=== PATIENT | male | born 1960 | race Caucasian/White ===

== ENCOUNTER 2019-01-28 07:58 | Day surgery (SDC) | payer BC, OTHER ==
[2019-01-28] VITALS (8 sets, daily range): BP systolic 112–151; BP diastolic 52–87
[~2019-01-28] VITALS: Ht 165.1 cm; Wt 81.6 kg
[2019-01-28] MEDS ORDERED: fentaNYL INJECTION 100 MCG/2 ML AMP IVP STA ×3 (08:28→14:15)
[2019-01-28] MEDS ORDERED: NS IV 1000 ML 1,000 ML IV STA (08:28)
[2019-01-28] MEDS ORDERED: ONDANSETRON 4 MG/2 ML (SDV) Z0FRAN IVP ONE ×2 (08:30→11:45)
--- NOTE | 2019-01-28 08:39 | ED Abdominal Pain ---
General Chief Complaint: Abdominal/GI Problems Stated Complaint: N/V;ABD PAIN Nursing Triage Note: PT AMB TO [facility] 10 WITH COMPLAINT OF ABD PAIN, N/V/D FOR THE LAST FEW DAYS. STATES IT IS A CONSTANT CRAMPING PAIN IN THE UMBILICAL AREA THAT RADIATES TO RLQ AND LLQ. Sepsis Screen: No Definite Risk (KIRSTIE THOMAS MEDICAL STUDENT) History of Present Illness Date Seen by Provider: Jan 28, 2019 Time Seen by Provider: 08:26 Initial Comments Pt presents this morning to the ED from [place] c/o nausea, vomiting, diarrhea, and abdominal pain since Thursday. Pt describes the pain as crampy, periumbilical, and coming in waves. He endorses chills since Thursday as well. Burping initially helped relieve some of the pain, but no longer is helping. No relief in pain from bowel movements. Pt has been taking Emetrol for nausea and has tried Pepto Bismol without relief. Denies chest pain, SOB, or urinary urgency. Pt prefers to use the pronouns he, him, his but does still have female internal organs. Timing/Duration: 5-6 Days Severity/Quality: Severe, Cramping Location: Periumbilical Radiation: No Radiation Activities at Onset: None Modifying Factors: Improves With Other (burping) Associated Symptoms: No Chest Pain; Fever/Chills; No Heartburn; Nausea/Vomiting; No Shortness of Air (KIRSTIE THOMAS MEDICAL STUDENT) Allergies and Home Medications Allergies Coded Allergies: Penicillins (Verified Allergy, Unknown, 01/28/19) codeine (Verified Allergy, Unknown, 01/28/19) Home Medications Hydrocodone Bit/Acetaminophen 1 Tab Tab, 1 TAB PO Q6H PRN for PAIN-MODERATE Prescribed by: ENOCH KHAN on 01/28/19 7406 Patient Home Medication List Home Medication List Reviewed: Yes (KIRSTIE THOMAS MEDICAL STUDENT) Review of Systems Review of Systems Constitutional: chills EENTM: No Symptoms Reported Respiratory: Denies Shortness of Air Cardiovascular: Denies Chest Pain Gastrointestinal: Abdominal Pain (periumbilical); Denies Blood Streaked Stools; Diarrhea, Nausea, Vomiting Genitourinary: Denies Urgency Musculoskeletal: no symptoms reported Skin: no symptoms reported Psychiatric/Neurological: No Symptoms Reported Endocrine: No Symptoms Reported Hematologic/Lymphatic: No Symptoms Reported (KIRSTIE THOMAS MEDICAL STUDENT) Past Tyyetnd-Mnzpkm-Vvzwcp Hx Patient Social History Alcohol Use: Denies Use Recreational Drug Use: No Smoking Status: Former Smoker (quit 10 years ago) Recent Foreign Travel: No Contact w/Someone Who Travel: No Recent Infectious Disease Expo: No Recent Hopitalizations: No (KIRSTIE THOMAS MEDICAL STUDENT) Immunizations Up To Date Tetanus Booster (TDap): Unknown (KIRSTIE THOMAS MEDICAL STUDENT) Seasonal Allergies Seasonal Allergies: No (KIRSTIE THOMAS MEDICAL STUDENT) Past Medical History Surgeries: Yes (CARPAL TUNNEL, HAND) Orthopedic (bilateral hand surgery) Respiratory: No Cardiac: Yes Hypertension Neurological: No Genitourinary: No Gastrointestinal: No Musculoskeletal: Yes Rheumatoid Arthritis Endocrine: No HEENT: No Cancer: No Psychosocial: No Integumentary: No (KIRSTIE THOMAS MEDICAL STUDENT) Physical Exam Vital Signs Vital Signs - First Documented 01/28/19 08:02 Temp 97.7 Pulse 89 Resp 20 B/P (MAP) 119/93 (102) Pulse Ox 98 O2 Delivery Room Air (JACQUELINE HOUGH MD) Vital Signs Capillary Refill : Less Than 3 Seconds (KIRSTIE THOMAS MEDICAL STUDENT) Height/Weight/BMI Height: 5'5.00" Weight: 180lbs. oz. 81.114441wa; BMI Method:Stated General Appearance: WD/WN, mild distress HEENT: PERRL/EOMI, pharynx normal Neck: non-tender, full range of motion Respiratory: chest non-tender, lungs clear, plerual rub (bilateral inferior lobes) Cardiovascular: normal peripheral pulses, regular rate, rhythm, no murmur Peripheral Pulses: 2+ Radial Pulses (R), 2+ Radial Pulses (L) Gastrointestinal: normal bowel sounds, non tender, soft, other (rigidity) Extremities: non-tender, no pedal edema Back: normal inspection, no vertebral tenderness Neurologic/Psychiatric: alert, oriented x 3 Skin: ecchymosis (scattered bilateral arms) (KIRSTIE THOMAS MEDICAL STUDENT) Progress/Results/Core Measures Results/Orders Lab Results Laboratory Tests Test 01/28/19 08:10 01/28/19 10:14 Range/Units White Blood Count 6.3 4.3-11.0 10^3/uL Red Blood Count 4.48 4.35-5.85 10^6/uL Hemoglobin 12.7 L 13.3-17.7 G/DL Hematocrit 39 L 40-54 % Mean Corpuscular Volume 87 80-99 FL Mean Corpuscular Hemoglobin 28 25-34 PG Mean Corpuscular Hemoglobin Concent 33 32-36 G/DL Red Cell Distribution Width 14.9 H 10.0-14.5 % Platelet Count 286 130-400 10^3/uL Mean Platelet Volume 10.6 H 7.4-10.4 FL Neutrophils (%) (Auto) 76 H 42-75 % Lymphocytes (%) (Auto) 15 12-44 % Monocytes (%) (Auto) 7 0-12 % Eosinophils (%) (Auto) 2 0-10 % Basophils (%) (Auto) 0 0-10 % Neutrophils # (Auto) 4.7 1.8-7.8 X 10^3 Lymphocytes # (Auto) 0.9 L 1.0-4.0 X 10^3 Monocytes # (Auto) 0.5 0.0-1.0 X 10^3 Eosinophils # (Auto) 0.1 0.0-0.3 10^3/uL Basophils # (Auto) 0.0 0.0-0.1 10^3/uL Sodium Level 137 135-145 MMOL/L Potassium Level 3.6 3.6-5.0 MMOL/L Chloride Level 105 98-107 MMOL/L Carbon Dioxide Level 23 21-32 MMOL/L Anion Gap 9 5-14 MMOL/L Blood Urea Nitrogen 9 7-18 MG/DL Creatinine 0.78 0.60-1.30 MG/DL Estimat Glomerular Filtration Rate > 60 BUN/Creatinine Ratio 12 Glucose Level 121 H 70-105 MG/DL Calcium Level 9.4 8.5-10.1 MG/DL Corrected Calcium 9.6 8.5-10.1 MG/DL Total Bilirubin 0.4 0.1-1.0 MG/DL Aspartate Amino Transf (AST/SGOT) 16 5-34 U/L Alanine Aminotransferase (ALT/SGPT) 15 0-55 U/L Alkaline Phosphatase 94 40-136 U/L C-Reactive Protein High Sensitivity 2.00 H 0.00-0.50 MG/DL Total Protein 6.7 6.4-8.2 GM/DL Albumin 3.8 3.2-4.5 GM/DL Lipase 36 8-78 U/L Urine Color YELLOW Urine Clarity CLEAR Urine pH 5 5-9 Urine Specific [place] 1.020 1.016-1.022 Urine Protein NEGATIVE NEGATIVE Urine Glucose (UA) NEGATIVE NEGATIVE Urine Ketones NEGATIVE NEGATIVE Urine Nitrite NEGATIVE NEGATIVE Urine Bilirubin NEGATIVE NEGATIVE Urine Urobilinogen NORMAL NORMAL MG/DL Urine Leukocyte Esterase 2+ H NEGATIVE Urine RBC (Auto) 1+ H NEGATIVE Urine RBC RARE /HPF Urine WBC 5-10 H /HPF Urine Squamous Epithelial Cells 5-10 /HPF Urine Crystals NONE /LPF Urine Bacteria MODERATE H /HPF Urine Casts NONE /LPF Urine Mucus MODERATE H /LPF Urine Culture Indicated YES (JACQUELINE HOUGH MD) My Orders Orders - JACQUELINE HOUGH MD Cbc With Automated Diff (01/28/19 08:28) Comprehensive Metabolic Panel (01/28/19 08:28) Hs C Reactive Protein (01/28/19 08:28) Ua Culture If Indicated (01/28/19 08:28) Ondansetron Injection (Zofran Injectio (01/28/19 08:30) Ns Iv 1000 Ml (Sodium Chloride 0.9%) (01/28/19 08:28) Ed Iv/Invasive Line Start (01/28/19 08:28) Fentanyl Injection (Sublimaze Injection (01/28/19 08:28) Lipase (01/28/19 08:28) Chest Pa/Lat (2 View) (01/28/19 09:20) Ct Abdomen/Pelvis W (01/28/19 10:24) Iohexol Injection (Omnipaque 350 Mg/Ml 1 (01/28/19 10:30) Received Contrast (Hold Metformin- Contr (01/28/19 10:30) Sodium Chloride Flush (Catheter Flush Sy (01/28/19 10:30) Ns (Ivpb) (Sodium Chloride 0.9% Ivpb Bag (01/28/19 10:30) Urine Culture (01/28/19 10:14) Ondansetron Injection (Zofran Injectio (01/28/19 11:45) Fentanyl Injection (Sublimaze Injection (01/28/19 11:34) Us Pelvic (Non Ob)43566 (01/28/19 12:52) Ns Iv 1000 Ml (Sodium Chloride 0.9%) (01/28/19 14:15) Fentanyl Injection (Sublimaze Injection (01/28/19 14:15) Bupivacaine 0.5% W/Epi Inj (Sensorcaine (01/28/19 15:22) Propofol Injection (Diprivan Injection) (01/28/19 15:31) Dexamethasone Injection (Decadron Inject (01/28/19 15:31) Ondansetron Injection (Zofran Injectio (01/28/19 15:31) Lidocaine 2% Pf 5 Ml (Xylocaine 2% Pf) (01/28/19 15:31) Sevoflurane (15 Min) Inhal Jaqueline (Ultane ( (01/28/19 15:31) Fentanyl Injection (Sublimaze Injection (01/28/19 15:31) Midazolam Injection (Versed Injection) (01/28/19 15:31) Rocuronium 5 Ml Syringe (Rocuronium 5 Ml (01/28/19 15:35) (JACQUELINE HOUGH MD) Medications Given in ED (JACQUELINE HOUGH MD) Vital Signs/I&O 01/28/19 08:02 Temp 97.7 Pulse 89 Resp 20 B/P (MAP) 119/93 (102) Pulse Ox 98 O2 Delivery Room Air 01/29/19 00:00 Intake Total 1000 ml Balance 1000 ml (JACQUELINE HOUGH MD) Blood Pressure Mean: 102 Progress Progress Note : Progress Note I have seen and evaluated the patient and agree with above except as indicated. Have directed the plan of care. Patient is here with midepigastric pain over the last 4 days. Much worse today. Is associated with nausea and vomiting. I had anything like this before. He is tender mid abdomen and does appear to have some guarding. Plan is for IV, labs, UA, normal saline 1 L bolus, Zofran 4 mg IV and fentanyl 50 g IV ordered. Anticipate CT scan of the abdomen and pelvis. 1030: CT abdomen pelvis ordered. Monitor patient. 1035: Pain returned. Repeat fentanyl [address] 1435: CT complete and concerning for right adnexal cyst. Patient identifies as male but does have female genitalia. This was discussed with the patient. He understands that we will need to evaluate the adnexa via ul trasound due to concerns for cystic structure versus mass. We will try transabdominal ultrasound and this was ordered. Repeat fentanyl 50 g IV ordered for pain. I have discussed the case with Dr. Khan because patient is requiring additional dosing of pain medicines and has findings of gallstones. I do believe this is the cause of the pain. We will still attempt to get the ultrasound if able although this was delayed earlier due to decompressed bladder. Dr. Khan will see the patient in the emergency department. 1500: Patient has been seen by Dr. Khan and he will take him to surgery. Ultrasound pending. 1545: Patient to ultrasound which was done. Surgery department here to take patient to OR. Pain is tolerable currently. Did receive a second liter of fluid in an effort to try to expand the bladder which seems to have helped. To OR. (JACQUELINE HOUGH MD) Diagnostic Imaging Diagonstic Imaging: Xray, CT Plain Films/CT/US/NM/MRI: chest, abdomen Comments NAME: QUAN MCLEOD [facility] REC#: [id number] PT STATUS: REG ER : 1960 PHYSICIAN: JACQUELINE HOUGH MD ADMIT DATE: 01/28/19/ER Draft Date of Exam:01/28/19 CT ABDOMEN/PELVIS W PROCEDURE: CT abdomen and pelvis with contrast. TECHNIQUE: Multiple contiguous axial images were obtained through the abdomen and pelvis after administration of intravenous contrast. Auto Exposure Controls were utilized during the CT exam to meet ALARA standards for radiation dose reduction. DATE: January 28, 2019. COMPARISON: None. INDICATION: 58-year-old male, abdominal pain, nausea, vomiting, diarrhea. Symptoms for 4 days. FINDINGS: There is mild atelectasis and/or scarring in the left lower lobe. The additional visualized portions of the lung bases are clear. The heart is not enlarged. There is no identified pericardial effusion. The liver is unremarkable in size and contour. There is no identified liver lesion. The main, right, and left portal veins are patent. There are gallstones. The gallbladder is mildly distended. There is no pericholecystic fluid or inflammatory stranding immediately adjacent to the gallbladder to specifically suggest acute cholecystitis. There is no intrahepatic or extrahepatic bile duct dilation. There is an accessory splenule on axial image 17. The spleen is normal in size. There is a right adrenal nodule on axial image 18 measuring 1.4 cm in size which is indeterminate. There are subcentimeter low-attenuation right renal lesions which are too small to characterize. Urinary collecting systems are not distended. There is no identified renal or ureteral stone. The urinary bladder is grossly unremarkable in appearance. There is a low-attenuation right adnexal mass on axial image 65 which measures 5.0 x 2.9 cm in size. This is not specific. There is mild diverticulosis without evidence of acute diverticulitis. The appendix is seen on axial image 59 and adjacent sequential images. There is no evidence of acute appendicitis. There is no free intraperitoneal air. There is no drainable fluid collection. There is no free pelvic fluid. The intestinal tract is not distended. There are atherosclerotic calcifications. There is no identified abnormally enlarged lymph node in the abdomen or pelvis which meets CT size criteria for adenopathy. There are limitations of musculoskeletal assessment given lack of coronal and sagittal reformats. There are degenerative changes of the spine. IMPRESSION: CT ABDOMEN AND PELVIS. 1. Cholelithiasis without evidence of acute cholecystitis. 2. No identified acute abnormality within the abdomen or pelvis. 3. Low-attenuation right adnexal mass measuring 5.0 x 2.9 cm in size which is nonspecific. Further evaluation with pelvic ultrasound may be helpful. 4. Indeterminate right adrenal nodule measuring 1.4 cm in size. Dictated on workstation # [id number] Dict: 01/28/19 1205 Trans: 01/28/19 1234 [facility] [id number] Interpreted by: BETH ACOSTA MD Electronically signed by: (KIRSTIE THOMAS MEDICAL STUDENT) Diagonstic Imaging: Xray Plain Films/CT/US/NM/MRI: chest Comments [facility] [place] NAME: QUAN MCLEOD [facility] REC#: [id number] PT STATUS: REG ER : 1960 PHYSICIAN: JACQUELINE HOUGH MD ADMIT DATE: 01/28/19/ER Draft Date of Exam:01/28/19 CHEST PA/LAT (2 VIEW) INDICATION: Basilar crackles, pain. FINDINGS: The lungs are clear. The heart size and vascularity are normal. There is no failure, effusion, or pneumothorax. No free air beneath the diaphragm. The cardiomediastinal and hilar contours are normal. IMPRESSION: Normal two-view chest. Dictated on workstation # [id number] Dict: 01/28/1950 Trans: 01/28/19 0956 [id number] Interpreted by: GLENN PERALES Electronically signed by: (JACQUELINE HOUGH MD) Departure Communication (Admissions) Time/Spoke to Admitting Phy: 15:00 (JACQUELINE HOUGH MD) Impression Primary Impression: Gallstones Additional Impression: Right ovarian cyst Disposition: ADMITTED INPATIENT Condition: Stable Admissions Decision to Admit Reason: Admit from ER (General) Decision to Admit/Date: Jan 28, 2019 Time/Decision to Admit Time: 15:00 (JACQUELINE HOUGH MD) Departure-Patient Inst. Referrals: CORKY BARR MD (PCP) Primary Care Physician Scripts Hydrocodone Bit/Acetaminophen (Hydrocodone/Acetaminophen 5/325mg Tablet) 1 Tab T ab 1 TAB PO Q6H PRN for PAIN-MODERATE MDD 10, #20 TAB Prov: ENOCH KHAN DO 01/28/19 KIRSTIE THOMAS MEDICAL STUDENT Jan 28, 2019 08:39 JACQUELINE HOUGH MD Jan 28, 2019 10:05
[2019-01-28 09:19] LABS: BASOPHILS % (AUTO) 0 % (0-10); EOSINOPHILS # (AUTO) 0.1 10^3/uL (0.0-0.3); EOSINOPHILS % (AUTO) 2 % (0-10); HEMATOCRIT 39 % (40-54); HEMOGLOBIN 12.7 G/DL (13.3-17.7); LYMPHOCYTES # (AUTO) 0.9 X 10^3 (1.0-4.0); LYMPHOCYTES % (AUTO) 15 % (12-44); MEAN CORPUSCULAR HEMOGLOBIN 28 PG (25-34); MEAN CORPUSCULAR HGB CONC 33 G/DL (32-36); MEAN CORPUSCULAR VOLUME 87 FL (80-99); MEAN PLATELET VOLUME 10.6 FL (7.4-10.4); MONOCYTES # (AUTO) 0.5 X 10^3 (0.0-1.0); MONOCYTES % (AUTO) 7 % (0-12); NEUTROPHILS # (AUTO) 4.7 X 10^3 (1.8-7.8); NEUTROPHILS % (AUTO) 76 % (42-75); PLATELET COUNT 286 10^3/uL (130-400); RED CELL DISTRIBUTION WIDTH 14.9 % (10.0-14.5); WHITE BLOOD COUNT 6.3 10^3/uL (4.3-11.0)
[2019-01-28 09:31] LABS: ALANINE AMINOTRANSFERASE 15 U/L (0-55); ALBUMIN 3.8 GM/DL (3.2-4.5); ALKALINE PHOSPHATASE 94 U/L (40-136); BILIRUBIN,TOTAL 0.4 MG/DL (0.1-1.0); BUN/CREATININE RATIO 12; CALCIUM 9.4 MG/DL (8.5-10.1); CARBON DIOXIDE 23 MMOL/L (21-32); CHLORIDE 105 MMOL/L (98-107); CREATININE SERUM 0.78 MG/DL (0.60-1.30); GFR ESTIMATED > 60; GLUCOSE 121 MG/DL (70-105); LIPASE 36 U/L (8-78); POTASSIUM 3.6 MMOL/L (3.6-5.0); SODIUM 137 MMOL/L (135-145); TOTAL PROTEIN 6.7 GM/DL (6.4-8.2)
--- NOTE | 2019-01-28 09:56 | Diagnostic Imaging Report ---
INDICATION: Basilar crackles, pain. FINDINGS: The lungs are clear. The heart size and vascularity are normal. There is no failure, effusion, or pneumothorax. No free air beneath the diaphragm. The cardiomediastinal and hilar contours are normal. IMPRESSION: Normal two-view chest. Dictated by: Dictated on workstation # [id number]
[2019-01-28 10:21] LABS: BILIRUBIN,URINE NEGATIVE (NEGATIVE); CLARITY,URINE CLEAR; COLOR,URINE YELLOW; GLUCOSE, URINE (UA) NEGATIVE (NEGATIVE); KETONES,URINE NEGATIVE (NEGATIVE); LEUKOCYTE ESTERASE ,URINE 2+ (NEGATIVE); NITRITE,URINE NEGATIVE (NEGATIVE); PH,URINE 5 (5-9); PROTEIN,URINE NEGATIVE (NEGATIVE); UROBILINOGEN,URINE NORMAL (NORMAL)
[2019-01-28] MEDS ORDERED: IOHEXOL 350 MG/ML 100 ML (OMNIPAQUE 350) VIAL IV ONE (10:30)
[2019-01-28] MEDS ORDERED: NS 100 ML (IVPB) BAG IV ONE (10:30)
[2019-01-28] MEDS ORDERED: CATHETER FLUSH 10 ML SYR IV PRN (10:30)
[2019-01-28] MEDS ORDERED: HOLD METFORMIN - RECEIVED CONTRAST 20 ML VIAL IV SCH (10:30)
[2019-01-28 10:32] LABS: BACTERIA,URINE MODERATE /HPF; RBC,URINE RARE /HPF
--- NOTE | 2019-01-28 12:34 | Diagnostic Imaging Report ---
PROCEDURE: CT abdomen and pelvis with contrast. TECHNIQUE: Multiple contiguous axial images were obtained through the abdomen and pelvis after administration of intravenous contrast. Auto Exposure Controls were utilized during the CT exam to meet ALARA standards for radiation dose reduction. DATE: January 28, 2019. COMPARISON: None. INDICATION: 58-year-old male, abdominal pain, nausea, vomiting, diarrhea. Symptoms for 4 days. FINDINGS: There is mild atelectasis and/or scarring in the left lower lobe. The additional visualized portions of the lung bases are clear. The heart is not enlarged. There is no identified pericardial effusion. The liver is unremarkable in size and contour. There is no identified liver lesion. The main, right, and left portal veins are patent. There are gallstones. The gallbladder is mildly distended. There is no pericholecystic fluid or inflammatory stranding immediately adjacent to the gallbladder to specifically suggest acute cholecystitis. There is no intrahepatic or extrahepatic bile duct dilation. There is an accessory splenule on axial image 17. The spleen is normal in size. There is a right adrenal nodule on axial image 18 measuring 1.4 cm in size which is indeterminate. There are subcentimeter low-attenuation right renal lesions which are too small to characterize. Urinary collecting systems are not distended. There is no identified renal or ureteral stone. The urinary bladder is grossly unremarkable in appearance. There is a low-attenuation right adnexal mass on axial image 65 which measures 5.0 x 2.9 cm in size. This is not specific. There is mild diverticulosis without evidence of acute diverticulitis. The appendix is seen on axial image 59 and adjacent sequential images. There is no evidence of acute appendicitis. There is no free intraperitoneal air. There is no drainable fluid collection. There is no free pelvic fluid. The intestinal tract is not distended. There are atherosclerotic calcifications. There is no identified abnormally enlarged lymph node in the abdomen or pelvis which meets CT size criteria for adenopathy. There are limitations of musculoskeletal assessment given lack of coronal and sagittal reformats. There are degenerative changes of the spine. IMPRESSION: CT ABDOMEN AND PELVIS. 1. Cholelithiasis without evidence of acute cholecystitis. 2. No identified acute abnormality within the abdomen or pelvis. 3. Low-attenuation right adnexal mass measuring 5.0 x 2.9 cm in size which is nonspecific. Further evaluation with pelvic ultrasound may be helpful. 4. Indeterminate right adrenal nodule measuring 1.4 cm in size. Dictated by: Dictated on workstation # [id number]
[2019-01-28] MEDS ORDERED: NS IV 1000 ML 1,000 ML IV ONE (14:15)
--- NOTE | 2019-01-28 15:19 | Consultation (Surgery) ---
History of Present Illness History of Present Illness Patient Consulted On(honey/time) 01/28/19 15:11 Time Seen by Provider: 14:37 History of Present Illness Surgery asked to consult regarding umbilical and RUQ pain. HPI per ED: Pt presents this morning to the ED from [place] c/o nausea, vomiting, diarrhea, and abdominal pain since Thursday. Pt describes the pain as crampy, periumbilical, and coming in waves. He endorses chills since Thursday as well. Burping initially helped relieve some of the pain, but no longer is helping. No relief in pain from bowel movements. Pt has been taking Emetrol for nausea and has tried Pepto Bismol without relief. Denies chest pain, SOB, or u rinary urgency. Pt prefers to use the pronouns he, him, his but does still have female internal organs. Timing/Duration: 5-6 Days Severity/Quality: Severe, Cramping Location: Periumbilical Radiation: No Radiation Activities at Onset: None Modifying Factors: Improves With Other (burping) Associated Symptoms: No Chest Pain; Fever/Chills; No Heartburn; Nausea/Vomiting; No Shortness of Air When I spoke to the pt he stated the pain started Thursday and the thought it was just "food poisoning"; but it never got better and is now much worse. Pain is 10 out of 10 and pain meds do not stop pain for very long. He states he has never had pain like this and has not had problems with greasy or fatty foods. Allergies and Home Medications Allergies Coded Allergies: Penicillins (Verified Allergy, Unknown, 01/28/19) codeine (Verified Allergy, Unknown, 01/28/19) Patient Home Medication List Home Medication List Reviewed: Yes Past Muwbpuz-Mqyzye-Ouhjcy Hx Patient Social History Alcohol Use: Denies Use Recreational Drug Use: No Smoking Status: Former Smoker (quit 10 years ago) Recent Foreign Travel: No Contact w/Someone Who Travel: No Recent Infectious Disease Expo: No Recent Hopitalizations: No Immunizations Up To Date Tetanus Booster (TDap): Unknown Seasonal Allergies Seasonal Allergies: No Surgeries History of Surgeries: Yes (CARPAL TUNNEL, HAND) Surgeries: Orthopedic (bilateral hand surgery) Respiratory History of Respiratory Disorde: No Cardiovascular History of Cardiac Disorders: Yes Cardiac Disorders: Hypertension Neurological History of Neurological Disord: No Genitourinary History of Genitourinary Disor: No Gastrointestinal History of Gastrointestinal Di: No Musculoskeletal History of Musculoskeletal Dis: Yes Musculoskeletal Disorders: Rheumatoid Arthritis Endocrine History of Endocrine Disorders: No HEENT History of HEENT Disorders: No Cancer History of Cancer: No Psychosocial History of Psychiatric Problem: No Integumentary History of Skin or Integumenta: No Family Medical History Significant Family History: Diabetes (sister and mother), Hypertension (Sisters and mother) Review of Systems-General Constitutional: chills, diaphoresis, malaise, weakness EENTM: No blurred vision, No double vision, No mouth pain, No mouth swelling, No epistaxis, No throat swelling Respiratory: No cough, No dyspnea on exertion, No hemoptysis, No short of nicol th Cardiovascular: No chest pain, No edema, No palpitations Gastrointestinal: abdominal pain, nausea, vomiting Genitourinary: No dysuria, No frequency, No hematuria Musculoskeletal: back pain, joint pain, joint swelling, muscle pain, muscle stiffness Skin: No change in color, No change in hair/nails; other (bruising on arms) Psychiatric/Neurological: Denies Anxiety, Denies Depressed, Denies Seizure, Denies Tremors Other pt denies any heat or cold intolerance Physical Exam-General Problems Physical Exam Vital Signs Vital Signs - First Documented 01/28/19 08:02 Temp 97.7 Pulse 89 Resp 20 B/P (MAP) 119/93 (102) Pulse Ox 98 O2 Delivery Room Air Capillary Refill : Less Than 3 Seconds General Appearance: WD/WN, moderate distress Eyes: Bilateral Eye PERRL, Bilateral Eye EOMI HEENT: pharynx normal; No scleral icterus (R), No scleral icterus (L) Neck: non-tender, supple, normal inspection Respiratory: chest non-tender, lungs clear, normal breath sounds, no respiratory distress, no accessory muscle use Cardiovascular: regular rate, rhythm, no edema, no murmur Gastrointestinal: normal bowel sounds, no organomegaly, guarding (voluntary); No rebound; tenderness (umbilical to RUQ), hernia (umbilical) Back: normal inspection, no CVA tenderness, no vertebral tenderness Extremities: normal range of motion, non-tender, normal inspection, no pedal edema, no calf tenderness Neurologic/Psychiatric: trainer II-XII nml as tested, no motor/sensory deficits, alert, normal mood/affect, oriented x 3 Skin: warm/dry, ecchymosis (arms) Lymphatic: no adenopathy (neck, axilla or groin) Data Review Labs Laboratory Tests 01/28/19 08:10: White Blood Count 6.3, Red Blood Count 4.48, Hemoglobin 12.7L, Hematocrit 39L, Mean Corpuscular Volume 87, Mean Corpuscular Hemoglobin 28, Mean Corpuscular Hemoglobin Concent 33, Red Cell Distribution Width 14.9H, Platelet Count 286, Mean Platelet Volume 10.6H, Neutrophils (%) (Auto) 76H, Lymphocytes (%) (Auto) 15, Monocytes (%) (Auto) 7, Eosinophils (%) (Auto) 2, Basophils (%) (Auto) 0, Neutrophils # (Auto) 4.7, Lymphocytes # (Auto) 0.9L, Monocytes # (Auto) 0.5, Eosinophils # (Auto) 0.1, Basophils # (Auto) 0.0, Sodium Level 137, Potassium Level 3.6, Chloride Level 105, Carbon Dioxide Level 23, Anion Gap 9, Blood Urea Nitrogen 9, Creatinine 0.78, Estimat Glomerular Filtration Rate > 60, BUN/Creatinine Ratio 12, Glucose Level 121H, Calcium Level 9.4, Corrected Calcium 9.6, Total Bilirubin 0.4, Aspartate Amino Transf (AST/SGOT) 16, Alanine Aminotransferase (ALT/SGPT) 15, Alkaline Phosphatase 94, C-Reactive Protein High Sensitivity 2.00H, Total Protein 6.7, Albumin 3.8, Lipase 36 01/28/19 10:14: Urine Color YELLOW, Urine Clarity CLEAR, Urine pH 5, Urine Specific [place] 1.020, Urine Protein NEGATIVE, Urine Glucose (UA) NEGATIVE, Urine Ketones NEGATIVE, Urine Nitrite NEGATIVE, Urine Bilirubin NEGATIVE, Urine Urobilinogen NORMAL, Urine Leukocyte Esterase 2+H, Urine RBC (Auto) 1+H, Urine RBC RARE, Urine WBC 5-10H, Urine Squamous Epithelial Cells 5-10, Urine Crystals NONE, Uri ne Bacteria MODERATEH, Urine Casts NONE, Urine Mucus MODERATEH, Urine Culture Indicated YES Assessment/Plan Assessment/Plan Assessment/Plan Acute Cholecystitis with Cholelthiasis Rheumatoid Arthritis HTN Plan is NPO, IV fluids, IV ABX dust control engineer to OR, pain medications, ant-emetics and will take pt to the OR for Laparoscopic Cholecystectom with possible cholangiogram and possible open. Discussed risks and complications with the pt; not limited to pain, bleeding, infection, scar, damage to bowel or bile duct and need for further procedure. All questions answered to his satisfaction. Will get consent. ENOCH KHAN DO Jan 28, 2019 15:19
[2019-01-28] MEDS ORDERED: BUP/EPI 0.5% 1:200,000 (SENSORCAINE) 30 ML VIAL ONE (15:22)
[2019-01-28] MEDS ORDERED: SEVOFLURANE (ULTANE) 15 ML INHAL SOLN ONE ×4 (15:31→17:28)
[2019-01-28] MEDS ORDERED: DEXAMETHASONE 10 MG/ML (DECADRON) 1 ML VIAL ONE (15:31)
[2019-01-28] MEDS ORDERED: ONDANSETRON 4 MG/2 ML (SDV) Z0FRAN ONE ×2 (15:31→16:54)
[2019-01-28] MEDS ORDERED: MIDAZOLAM 2 MG/2 ML (VERSED) VIAL ONE (15:31)
[2019-01-28] MEDS ORDERED: LIDOCAINE PF 2% 5 ML (XYLOCAINE) VIAL ONE (15:31)
[2019-01-28] MEDS ORDERED: proPOfol 200 MG/20 ML (DIPRIVAN) VIAL IV ONE (15:31)
[2019-01-28] MEDS ORDERED: fentaNYL INJECTION 100 MCG/2 ML AMP ONE ×2 (15:31→17:07)
[2019-01-28] MEDS ORDERED: ROCURONIUM 10 MG/ML 5 ML SYRINGE IV ONE (15:35)
--- OUTSIDE RECORDS SUMMARY | 2019-01-28 15:57 | XMS REPORT | Continuity of Care Document ---
Author Organization Unknown Address Unknown Allergies There is no data. Medications There is no data. Problems There is no data. Procedures There is no data. Results There is no data. Encounters ACCT No. Visit Date/Time Discharge Status Pt. Type Provider Facility Loc./Unit Complaint [id number] 12/31/2018 09:45:00 12/31/2018 23:59:59 [facility]
--- NOTE | 2019-01-28 16:38 | Diagnostic Imaging Report ---
PROCEDURE: US PELVIC (NON OB) TECHNIQUE: Multiple real-time grayscale images were obtained over the pelvis in various projections transabdominally. INDICATION: Abdominal pain with nausea and vomiting. Further assessment of right adnexal mass. COMPARISON: CT abdomen and pelvis of same day. FINDINGS: The uterus measures 7.2 x 4.3 x 3.1 cm. The myometrium is normal in echogenicity without discrete mass. The endometrium is poorly seen on transabdominal imaging, but measures approximately 0.5 cm. The left ovary is not visualized due to surrounding bowel gas. The right ovary measures 4.4 x 4.2 x 6.0 cm. There is an anechoic cyst within the right ovary measuring 2.9 x 4.2 x 2.8 cm. No concerning left adnexal mass. No free pelvic fluid. IMPRESSION: 1. Simple right ovarian cyst/dominant follicle accounts for the adnexal mass seen on CT. Dictated by: Dictated on workstation # [id number]
[2019-01-28] MEDS ORDERED: LACTATED RINGERS 1,000 ML IV PRN (16:45)
[2019-01-28] MEDS ORDERED: KETOROLAC 30 MG/ML VIAL ONE (16:50)
[2019-01-28] MEDS ORDERED: morphine INJ 10 MG/ML 1ML (SYR OR VIAL) ONE (16:53)
[2019-01-28] MEDS ORDERED: HYDROmorphone 2 MG/ML VIAL (DILAUDID) ONE (16:53)
[2019-01-28] MEDS ORDERED: ceFAZolin INJECTION 2,000 MG ONE (16:54)
[2019-01-28] MEDS ORDERED: ceFAZolin INJECTION 1,000 MG VIAL IV ONE (17:15)
[2019-01-28] MEDS ORDERED: GLYCOPYRROLATE 0.2 MG/ML (ROBINUL) 2 ML VIAL ONE (17:25)
[2019-01-28] MEDS ORDERED: NEOSTIGMINE 1 MG/ML 5 ML SYRINGE ONE (17:25)
--- NOTE | 2019-01-28 17:31 | Progress Note-Post Operative ---
Post-Operative Progess Note Surgeon (s)/Instrument Operator (s) Surgeon ENOCH KHAN DO Instrument Operator: [place] Pre-Operative Diagnosis Acute Dave/dave, RA, HTN Post-Operative Diagnosis Same Procedure & Operative Findings Date of Procedure 01/28/19 Procedure Performed/Findings Lap dave with IOC Anesthesia Type GET Estimated Blood Loss Estimated blood loss (mL): scant Specimens/Packing Specimens Removed GB and contents ENOCH KHAN DO Jan 28, 2019 17:31
[2019-01-28] MEDS ORDERED: ACHD5005 PO (17:32)
--- NOTE | 2019-01-28 17:34 | Discharge Inst-Surgical ---
Discharge Inst-Surgical Depart Medication/Instructions New, Converted or Re-Newed RX: RX Given to Pt/Family Patient Instructions Follow up Appt: Make appointment for 1 week. [phone] Instructions: No lifting greater than 20 pounds. No strenuous activity. May shower in 24 hours, no tub bath or soaking. Use incentive spirometer at home as directed. No Smoking Skin/Wound Care: May remove bandages in am. You need to leave the Dermabond on incision it will fall off on it's own. Symptoms to Report: Appetite Changes, Extremity Discoloration, Numbness/Tingling, Swelling Increased, Bleeding Excessive, Eyesight Changes, Pain Increased, Urine Color Change, Constipation(Persistent), Fever over 101 degree F, Pain/Pressure in chest, Urinating Difficulty, Cough Up/Vomit Blood, Heart Beat Irreg/Pounding, Pain/Pressure in jaw, Cramps in feet or legs, Lightheadedness, Pain/Pressure in shoulder, Diarrhea(Persistent), Memory Changes Suddenly, Questions/Concerns, Weight gain consecutive days, Dizziness/Fainting, Nausea/Vomiting, Shortness of Breath, Weight gain over 2 pounds If questions or concerns contact your physician Or seek help at emergency department. Activity Activity as Tolerated: Yes Activity Instructions: Avoid Stress to Incision Driving Instructions: No Driving/Refer to Diet Discharge Diet: Avoid Fatty Foods, Low Fat/Low Cholesterol Diet After 24 Hours: Clear Liquid if Nauseous If Any Problems/Questions/Issu: Contact Your Physician, Go to Emergency Room Skin/Wound Care Infection Signs and Symptoms: Increased Redness, Foul Odor of Wound, Increased Drainage, Skin Itchy or Has a Rash, Increased Swelling, Temperature Above 101 F Wound Care Comment: heating pad to shoulder or neck tonight for pain Bathing Instructions: Shower Stitches/Dazey/Dermabond Dis: Dermabond Ice Pack: Ice On and Off Site (to incisions if it helps with pain) ENOCH KHAN DO Jan 28, 2019 17:34
--- NOTE | 2019-01-28 17:35 | Diagnostic Imaging Report ---
INDICATION: Fluoroscopy during intraoperative cholangiogram. FINDINGS: Fluoroscopy was provided in the OR during intraoperative cholangiogram. 25 seconds of fluoroscopy was utilized. Images demonstrate contrast being injected via the cystic duct remnant. Intrahepatic and extrahepatic bile ducts appear to be patent. No filling defects are seen. There is contrast flowing into the duodenum. IMPRESSION: Fluoroscopy during intraoperative cholangiogram. Dictated by: Dictated on workstation # [id number]
[2019-01-28] MEDS ORDERED: morphine INJ 10 MG/ML 1ML (SYR OR VIAL) IVP ONE (17:45)
[2019-01-28] MEDS ORDERED: HYDROmorphone 2 MG/ML VIAL (DILAUDID) IV ONE (17:45)
[2019-01-28] MEDS ORDERED: ONDANSETRON 4 MG/2 ML (SDV) Z0FRAN IVP PRN (17:45)
--- NOTE | 2019-01-28 18:45 | NUR ---
POST LAP GUERDA PROCEDURE PATIENT ARRIVED ON FLOOR AT 1845 TO ROOM 407 . ACCOMPANIED BY OR NURSE. PT ORIENTED TO SURROUNDINGS. CALL LIGHT WITHIN REACH.
--- NOTE | 2019-01-28 20:26 | OPERATIVE REPORT ---
DATE OF SERVICE: 01/28/2019 PREOPERATIVE DIAGNOSES: 1. Acute cholecystitis, cholelithiasis. 2. Rheumatoid arthritis. 3. Hypertension. POSTOPERATIVE DIAGNOSES: 1. Acute cholecystitis, cholelithiasis. 2. Rheumatoid arthritis. 3. Hypertension. 4. Hydrops of the gallbladder. PROCEDURE: Laparoscopic cholecystectomy, intraoperative cholangiogram. SURGEON: Segundo King DO SHEET METAL INSULATOR: Brown Pavon DO ANESTHESIA: General endotracheal tube. SPECIMEN: Gallbladder and contents. BLOOD LOSS: Scant. FLUIDS: Per anesthesia. POSTOPERATIVE CONDITION: Stable. INDICATION FOR PROCEDURE: The patient is a 58-year-old male who came in with abdominal pain and was not helped with pain medications. CT scan showed stones in the bed in the neck of the gallbladder. FINDINGS: The patient had an edematous distended gallbladder with erythema and had hydrops of the gallbladder, also had an ovarian cyst. It looked normal in the right side. PROCEDURE NOTE: After informed consent was obtained, the patient was brought to the operating room, placed on the table in supine position, sterilely prepped and draped in normal fashion. Local lidocaine was used to infiltrate the skin above the umbilicus. I made the incision with #11 blade, carried down to the skin and subcutaneous tissue, deepened down to subcutaneous tissue with Bovie electrocautery down to the fascia. Fascia incised with Bovie electrocautery. Bluntly entered the abdomen, swept a finger around, placed 0 Vicryl [id number] suture, then placed 11 mm trocar port under direct visualization, created pneumoperitoneum and then placed 3 more ports in normal fashion using local lidocaine, 11 blade for stab incision and Versed system, all done under direct visualization, one subxiphoid and 2 in the right upper quadrant. The patient then placed in reverse Trendelenburg, slightly rotated left, able to grasp the gallbladder at the fundus, it was very distended, edematous, a little bit of erythema had a hard time grasping it and elected to make a hold to be able to drain it and grasped it. Made a hole with Bovie electrocautery and the [place] and immediately got out clear fluid. This is hydrops of the gallbladder meaning the stones were blocking the gallbladder from emptying. Then able to grasp this hole and grasp the gallbladder and taken in superior direction and then grasped the Fadi's pouch and pulled in inferolateral direction and start dissecting out cystic duct and cystic artery. While holding the gallbladder the cystic duct just popped off, had placed 1 clip proximally could we got around it and then placed 1 proximal and 1 distally and 2 distally on the cystic artery, shot a cholangiogram through the cystic duct stump. Good spillage of dye down the cystic duct and the common bile duct and down the small intestine as well as up into common hepatic and right and left hepatics. At this point, then removed the cholangiogram catheter, placed 2 clips proximally on the cystic duct and then cut the cystic artery with Metzenbaum scissors and removed the gallbladder from bed of liver with L-hook cautery. Encountered a posterior branch of the cystic artery and clipped this twice proximally and then cut above with Bovie electrocautery. Continued to take the gallbladder in the bed of the liver, which was completely removed, placed a bag in the abdomen, then placed the gallbladder in the bag and then removed this through a supraumbilical incision. Placed the port back in the abdomen, copiously irrigated with normal saline, suctioned this out. Hemostasis was obtained in the bed of liver. There was no bleeding. Clips were in place. At this point, then copiously irrigated and suctioned out and then placed the patient in slight Trendelenburg. Able to visualize uterus and ovary, looked up the right ovary, could see it looked like just a normal cyst. At this point, then placed the patient back supine, suctioned out all the fluid and then removed all ports under direct visualization and allowed pneumoperitoneum to escape as well as suctioned out and then closed the supraumbilical incision, closing the fascia with 0 Vicryl suture previously placed. Copiously irrigated all incisions with normal saline and closed the three small 5 mm incisions with a single interrupted 4-0 undyed Monocryl subcuticular stitch and then closed supraumbilical incision with 3 interrupted 4-0 undyed Monocryl subcuticular stitches. Area was cleaned and dried. Dermabond placed as well as Band-Aids. The patient then transferred to recovery room in stable condition. Sponge, instrument and needle count correct at the end of the case. Dr. Pavon assisted in this case helping to make incisions, closed incisions, identifying anatomy, hold anatomy out of the way. Job ID: [id number] DocumentID: [id number] Dictated Date: 01/28/2019 17:51:13 Oil Tanker Captain Date: 01/28/2019 20:25:29 Dictated By: SEGUNDO KING DO
--- NOTE | 2019-01-28 22:15 | NUR ---
QUAN MCLEOD demonstrates understanding of discharge instructions and accurately returns instructions upon questioning. Copy of Post-Discharge Instructions and Medication Discharge Instructions given to PATIENT AND FAMILY. QUAN MCLEOD is to manage continuing needs after discharge. Patients belongings returned to PATIENT. Skin dry and intact; no breakdown noted. Patient discharged from [facility]- on 01/28/19 at 2215 . QUAN MCLEOD left floor via WHEELCHAIR, accompanied by STAFF.
== END 2019-01-28 22:15 | disposition home or self-care (01) ==
LOC: EDBD 07:59 → ER 07:59 → SDC 15:54 → 4TH 18:45 → SDC 22:15
PROVIDERS: ATTEND Surgery
DX: K80.00 Calculus of gallbladder with acute cholecystitis without obstruction (principal); K82.1 Hydrops of gallbladder; I10 Essential (primary) hypertension; M06.9 Rheumatoid arthritis, unspecified; Z79.899 Other long term (current) drug therapy; Z87.891 Personal history of nicotine dependence
CPT/HCPCS: 36415; 71046; 74177; 76856; 80053; 81000; 83690; 85025; 86141; 87088

== ENCOUNTER → 2019-03-09 | Outpatient (CLI) | payer BC ==
[~2019-03-09] MED LIST: ACHD5005 PO
--- NOTE | 2019-03-09 12:24 | Diagnostic Imaging Report ---
Indication: Left foot pain radiating to left ankle. Time of exam 10:50 AM 3 views of the left foot were obtained. Marked bunion deformity. Metatarsals are intact. Degenerative changes first MTP joint is noted. Phalanges are intact. Midfoot and hindfoot are unremarkable. There are no fractures. Impression: Chronic changes. No acute bony abnormalities detected. Dictated by: Dictated on workstation # [id number]
== END ==
LOC: RAD 10:41
PROVIDERS: ATTEND Internal Medicine Rheumatology
DX: M19.072 Primary osteoarthritis, left ankle and foot (principal)
CPT/HCPCS: 73630

== ENCOUNTER 2019-07-20 08:06 | Inpatient (IN) | payer BC ==
[~2019-07-20] VITALS: Ht 167 cm; Wt 85.8 kg
[2019-07-20] MEDS ORDERED: NS IV 1000 ML 1,000 ML IV ONE (08:43)
[2019-07-20] MEDS ORDERED: fentaNYL INJECTION 100 MCG/2 ML AMP IVP ONE ×2 (08:45→11:30)
[2019-07-20] MEDS ORDERED: TOFA5TAB PO (08:45)
[2019-07-20] MEDS ORDERED: METH2.5T PO (08:45)
[2019-07-20] MEDS ORDERED: ESCI20TA45 PO (08:45)
[2019-07-20] MEDS ORDERED: IBUP-1780 PO (08:45)
[2019-07-20] MEDS ORDERED: LISI1TAB6 PO (08:45)
[2019-07-20] MEDS ORDERED: POTA10TA14 PO (08:45)
[2019-07-20] MEDS ORDERED: DICL100G31 TOP (08:45)
--- NOTE | 2019-07-20 08:49 | ED Abdominal Pain ---
General Chief Complaint: Abdominal/GI Problems Stated Complaint: LOWER ABD PAIN/VOMITING CHILLS Nursing Triage Note: pt presents to ed with complaints of low pelvic pain starting at 1200 yesterday. reprots woke up this am with n/v/d. pt deneis any urinary s/s but reports after emptying the bladder pain is more bearable. Sepsis Screen: No Definite Risk Source of Information: Patient Exam Limitations: No Limitations History of Present Illness Date Seen by Provider: Jul 20, 2019 Time Seen by Provider: 08:30 Initial Comments This 59-year-old female patient who identifies as a male presents to the emergency room via private vehicle with complaints of left lower quadrant pain that started yesterday. He did have some associated vomiting but is not nauseated now. He is afebrile. Denies any constipation or diarrhea. There has been no blood in urine, emesis or stool. No urinary complaints. Allergies and Home Medications Allergies Coded Allergies: Penicillins (Verified Allergy, Unknown, 01/28/19) codeine (Verified Allergy, Unknown, 01/28/19) Home Medications Ascorbate Calcium 500 Mg Tablet, 500 MG PO DAILY, (Reported) Cyanocobalamin (Vitamin B-12) 1,000 Mcg Tablet, 1,000 MCG PO DAILY, (Reported) Diclofenac Sodium 100 Gm Gel..gram., 4 GM TOP QID PRN for ARTHRITIS PAIN, (Reported) Escitalopram Oxalate 20 Mg Tablet, 20 MG PO DAILY, (Reported) Ferrous Sulfate 325 Mg Tablet, 325 MG PO DAILY, (Reported) Ibuprofen 800 Mg Tablet, 800 MG PO TID PRN for PAIN-MILD (1-4), (Reported) Lisinopril/Hydrochlorothiazide 1 Each Tablet, 0.5 TAB PO DAILY PRN for BP>120, (Reported) Methotrexate Sodium 2.5 Mg Tablet, 20 MG PO WEEK PRN for WHEN OUT OF XELJANZ, (Reported) TAKES 8 (2.5MG) TABLETS Potassium Chloride 10 Meq Tab.er.prt, 10 MEQ PO TID, (Reported) Tofacitinib Citrate 5 Mg Tablet, 5 MG PO BID, (Reported) Patient Home Medication List Home Medication List Reviewed: Yes Review of Systems Review of Systems Constitutional: no symptoms reported EENTM: No Symptoms Reported Respiratory: No Symptoms Reported Cardiovascular: No Symptoms Reported Gastrointestinal: See HPI Genitourinary: No Symptoms Reported Musculoskeletal: no symptoms reported Skin: no symptoms reported Psychiatric/Neurological: No Symptoms Reported Endocrine: No Symptoms Reported Hematologic/Lymphatic: No Symptoms Reported Past Vrvyuac-Zbcras-Tdizpl Hx Past Med/Social Hx: Reviewed Nursing Past Med/Soc Hx Patient Social History Alcohol Use: Denies Use Recreational Drug Use: No Smoking Status: Former Smoker Former Smoker, Quit: Jul 18, 2003 Recent Foreign Travel: No Contact w/Someone Who Travel: No Recent Infectious Disease Expo: No Recent Hopitalizations: No Physical Abuse: No Sexual Abuse: No Mistreated: No Fear: No Immunizations Up To Date Tetanus Booster (TDap): Unknown Date of Pneumonia Vaccine: Sep 30, 2016 Seasonal Allergies Seasonal Allergies: No Past Medical History Surgeries: Yes (CARPAL TUNNEL, HAND) Gallbladder, Orthopedic Respiratory: No Cardiac: Yes Hypertension Neurological: No Genitourinary: No Gastrointestinal: No Musculoskeletal: Yes Rheumatoid Arthritis Endocrine: No HEENT: No Cancer: No 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 oz. 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, no motor/sensory deficits, alert, normal mood/affect, oriented x 3 Skin: normal color, warm/dry Progress/Results/Core Measures Results/Orders Lab Results Laboratory Tests Test 07/20/19 08:57 07/20/19 10:02 Range/Units White Blood Count 11.5 H 4.3-11.0 10^3/uL Red Blood Count 4.75 4.35-5.85 10^6/uL Hemoglobin 12.8 11.5-16.0 G/DL Hematocrit 39 35-52 % Mean Corpuscular Volume 82 80-99 FL Mean Corpuscular Hemoglobin 27 25-34 PG Mean Corpuscular Hemoglobin Concent 33 32-36 G/DL Red Cell Distribution Width 14.2 10.0-14.5 % Platelet Count 253 130-400 10^3/uL Mean Platelet Volume 10.4 7.4-10.4 FL Neutrophils (%) (Auto) 85 H 42-75 % Lymphocytes (%) (Auto) 8 L 12-44 % Monocytes (%) (Auto) 7 0-12 % Eosinophils (%) (Auto) 0 0-10 % Basophils (%) (Auto) 0 0-10 % Neutrophils # (Auto) 9.9 H 1.8-7.8 X 10^3 Lymphocytes # (Auto) 0.9 L 1.0-4.0 X 10^3 Monocytes # (Auto) 0.8 0.0-1.0 X 10^3 Eosinophils # (Auto) 0.0 0.0-0.3 10^3/uL Basophils # (Auto) 0.0 0.0-0.1 10^3/uL Neutrophils % (Manual) 81 % Lymphocytes % (Manual) 10 % Monocytes % (Manual) 9 % Eosinophils % (Manual) 0 % Basophils % (Manual) 0 % Blood Morphology Comment NORMAL Sodium Level 139 135-145 MMOL/L Potassium Level 3.4 L 3.6-5.0 MMOL/L Chloride Level 104 98-107 MMOL/L Carbon Dioxide Level 23 21-32 MMOL/L Anion Gap 12 5-14 MMOL/L Blood Urea Nitrogen 7 7-18 MG/DL Creatinine 0.75 0.60-1.30 MG/DL Estimat Glomerular Filtration Rate > 60 BUN/Creatinine Ratio 9 Glucose Level 154 H 70-105 MG/DL Calcium Level 8.9 8.5-10.1 MG/DL Corrected Calcium 9.0 8.5-10.1 MG/DL Total Bilirubin 1.0 0.1-1.0 MG/DL Aspartate Amino Transf (AST/SGOT) 19 5-34 U/L Alanine Aminotransferase (ALT/SGPT) 13 0-55 U/L Alkaline Phosphatase 88 40-136 U/L Total Protein 6.8 6.4-8.2 GM/DL Albumin 3.9 3.2-4.5 GM/DL Urine Color YELLOW Urine Clarity CLEAR Urine pH 7.0 5-9 Urine Specific [place] 1.010 L 1.016-1.022 Urine Protein NEGATIVE NEGATIVE Urine Glucose (UA) NEGATIVE NEGATIVE Urine Ketones NEGATIVE NEGATIVE Urine Nitrite NEGATIVE NEGATIVE Urine Bilirubin NEGATIVE NEGATIVE Urine Urobilinogen 0.2 < = 1.0 MG/DL Urine Leukocyte Esterase NEGATIVE NEGATIVE Urine RBC (Auto) TRACE-I NEGATIVE Urine RBC 0-2 /HPF Urine WBC NONE /HPF Urine Squamous Epithelial Cells 2-5 /HPF Urine Crystals NONE /LPF Urine Bacteria TRACE /HPF Urine Casts NONE /LPF Urine Mucus NEGATIVE /LPF Urine Culture Indicated NO My Orders Orders - JOLANTA MORALES MD Cbc With Automated Diff (07/20/19 08:29) Comprehensive Metabolic Panel (07/20/19 08:29) Ua Culture If Indicated (07/20/19 08:29) Ed Iv/Invasive Line Start (07/20/19 08:29) Ns Iv 1000 Ml (Sodium Chloride 0.9%) (07/20/19 08:43) Fentanyl Injection (Sublimaze Injection (07/20/19 08:45) Manual Differential (07/20/19 08:57) Fentanyl Injection (Sublimaze Injection (07/20/19 11:30) Ondansetron Injection (Zofran Injectio (07/20/19 11:45) Ct Abdomen/Pelvis W (07/20/19 11:34) Iohexol Injection (Omnipaque 350 Mg/Ml 1 (07/20/19 11:45) Received Contrast (Hold Metformin- Contr (07/20/19 11:45) Ns (Ivpb) (Sodium Chloride 0.9% Ivpb Bag (07/20/19 11:45) Lactated Ringers (Lr 1000 Ml Iv Solution (07/20/19 12:33) Levofloxacin 750 Mg/150 Ml Iv (Levaquin (07/20/19 12:45) Medications Given in ED Current Medications Medications Dose Ordered Sig/Jhoan Route Start Time Stop Time Status Last Admin Dose Admin Fentanyl Citrate 50 mcg ONCE ONCE IVP 07/20/19 11:30 07/20/19 11:31 DC 07/20/19 11:43 50 MCG Iohexol 100 ml ONCE ONCE IV 07/20/19 11:45 07/20/19 11:46 DC 07/20/19 12:04 100 ML Lactated Ringer's 1,000 ml @ 0 mls/hr Q0M ONCE IV 07/20/19 12:33 07/20/19 12:34 DC 07/20/19 12:53 0 MLS/HR Levofloxacin/ Dextrose 150 ml @ 100 mls/hr ONCE ONCE IV 07/20/19 12:45 07/20/19 14:14 DC 07/20/19 12:53 100 MLS/HR Ondansetron HCl 8 mg ONCE ONCE IVP 07/20/19 11:45 07/20/19 11:46 DC 07/20/19 11:42 8 MG Sodium Chloride 100 ml ONCE ONCE IV 07/20/19 11:45 07/20/19 11:46 DC 07/20/19 12:04 80 ML Vital Signs/I&O 07/20/19 08:37 Temp 37.0 Pulse 107 Resp 18 B/P (MAP) 154/95 (114) Pulse Ox 99 Blood Pressure Mean: 114 Progress Progress Note : Time: 13:02 Progress Note Lab workup was relatively unremarkable. CT followed and revealed a perforated diverticulum. Antibiotic therapy was started with Levaquin 750 mg in the ER. Case was discussed with Dr. Alvarez. Patient will be admitted to the hospitalist service as he does not intend to do surgery unless she does not improve with IV antibiotics. Case was discussed with Dr. Liao who is in agreement. Dr. THOMAS was consulted for the abnormal appearing right ovarian cyst. Fentanyl was used to control pain. 2 L of IV fluids was infused in the ER. Zofran was given for nausea. Diagnostic Imaging Diagonstic Imaging: CT Plain Films/CT/US/NM/MRI: abdomen, pelvis Comments CT abdomen and pelvis viewed by me and report reviewed. See report below: NAME: QUAN MCLEOD [facility] REC#: [id number] PT STATUS: ADM IN : 1960 PHYSICIAN: JOLANTA MORALES MD ADMIT DATE: 07/20/19/ICU Signed Date of Exam:07/20/19 CT ABDOMEN/PELVIS W EXAMINATION: CT Abdomen and Pelvis with intravenous contrast. TECHNIQUE: Multiple contiguous axial images were obtained through the abdomen and pelvis after the uneventful administration of intravenous contrast. All CT scans use one or more of the following dose optimizing techniques: automated exposure control, MA and/or KvP adjustment based on a patient size and exam type, or iterative reconstruction. HISTORY: Abdominal pain. COMPARISON: 01/28/2019 FINDINGS: There is mild atelectasis in the lung bases. The liver is normal without focal lesion. There is no biliary ductal dilation. Gallbladder is absent. Pancreas is normal. Spleen is normal. Adrenal glands are normal. The kidneys are normal. There is no hydronephrosis. Urinary bladder is normal. A 5.0 x 3.6 cm right adnexal cyst is similar to prior exam. There is severe diverticulitis of the sigmoid colon. There is a small amount of extraluminal gas likely representing a perforated diverticulum. The air is contained adjacent to the colon without free air elsewhere in the abdomen. There is no drainable fluid collection. No free fluid or air. No abdominal or pelvic lymphadenopathy. Aorta is normal in caliber without aneurysm. There are no suspicious osseous lesions. IMPRESSION: 1. Severe sigmoid diverticulitis with a focal small contained perforation but no drainable fluid collection and no free air elsewhere within the abdomen. 2. Unchanged right adnexal cyst measuring up to 5.0 cm. In a patient of this age this is concerning for an ovarian neoplasm and gynecologic evaluation is recommended. Critical findings communicated to Dr. Schulz by Dr. Craft on 07/20/2019 at 12:30 p.m. Dictated by: Dictated on workstation # [id number] Dict: 07/20/19 1222 Trans: 07/20/19 1357 [facility] [id number] Interpreted by: RONALDO CRAFT MD Electronically signed by: RONALDO CRAFT MD 07/20/19 1357 Departure Communication (Admissions) Time/Spoke to Admitting Phy: 12:50 Dr. Liao 12:40 Dr. Alvarez 12:50 Dr. THOMAS Impression Primary Impression: Diverticulitis of colon with perforation Qualified Codes: K57.20 - Diverticulitis of large intestine with perforation and abscess without bleeding Additional Impressions: Right ovarian cyst Nausea and vomiting Qualified Codes: R11.2 - Nausea with vomiting, unspecified Disposition: ADMITTED INPATIENT Condition: Improved Admissions Decision to Admit Reason: Admit from ER (General) Decision to Admit/Date: Jul 20, 2019 Time/Decision to Admit Time: 12:30 Departure-Patient Inst. Referrals: SELF,CORKY PAVON (PCP/Family) Primary Care Physician JOLANTA MORALES MD Jul 20, 2019 08:49
[2019-07-20 09:07] LABS: BASOPHILS % (AUTO) 0 % (0-10); EOSINOPHILS % (AUTO) 0 % (0-10); HEMATOCRIT 39 % (35-52); HEMOGLOBIN 12.8 G/DL (11.5-16.0); LYMPHOCYTES # (AUTO) 0.9 X 10^3 (1.0-4.0); LYMPHOCYTES % (AUTO) 8 % (12-44); MEAN CORPUSCULAR HEMOGLOBIN 27 PG (25-34); MEAN CORPUSCULAR HGB CONC 33 G/DL (32-36); MEAN CORPUSCULAR VOLUME 82 FL (80-99); MEAN PLATELET VOLUME 10.4 FL (7.4-10.4); MONOCYTES # (AUTO) 0.8 X 10^3 (0.0-1.0); MONOCYTES % (AUTO) 7 % (0-12); NEUTROPHILS # (AUTO) 9.9 X 10^3 (1.8-7.8); NEUTROPHILS % (AUTO) 85 % (42-75); PLATELET COUNT 253 10^3/uL (130-400); RED CELL DISTRIBUTION WIDTH 14.2 % (10.0-14.5); WHITE BLOOD COUNT 11.5 10^3/uL (4.3-11.0)
[2019-07-20 09:29] LABS: ALANINE AMINOTRANSFERASE 13 U/L (0-55); ALBUMIN 3.9 GM/DL (3.2-4.5); ALKALINE PHOSPHATASE 88 U/L (40-136); BUN/CREATININE RATIO 9; CALCIUM 8.9 MG/DL (8.5-10.1); CARBON DIOXIDE 23 MMOL/L (21-32); CHLORIDE 104 MMOL/L (98-107); CREATININE SERUM 0.75 MG/DL (0.60-1.30); GFR ESTIMATED > 60; GLUCOSE 154 MG/DL (70-105); POTASSIUM 3.4 MMOL/L (3.6-5.0); SODIUM 139 MMOL/L (135-145); TOTAL PROTEIN 6.8 GM/DL (6.4-8.2)
[2019-07-20 09:39] LABS: BASOPHILS % (MANUAL) 0 %; EOSINOPHILS % (MANUAL) 0 %; LYMPHOCYTES % (MANUAL) 10 %; MONOCYTES % (MANUAL) 9 %; NEUTROPHILS % (MANUAL) 81 %
[2019-07-20 09:40] LABS: RBC MORPH NORMAL
[2019-07-20 10:17] LABS: BILIRUBIN,URINE NEGATIVE (NEGATIVE); CLARITY,URINE CLEAR; COLOR,URINE YELLOW; GLUCOSE, URINE (UA) NEGATIVE (NEGATIVE); KETONES,URINE NEGATIVE (NEGATIVE); LEUKOCYTE ESTERASE ,URINE NEGATIVE (NEGATIVE); NITRITE,URINE NEGATIVE (NEGATIVE); PROTEIN,URINE NEGATIVE (NEGATIVE)
[2019-07-20 10:28] LABS: BACTERIA,URINE TRACE /HPF; RBC,URINE 0-2 /HPF
[2019-07-20] MEDS ORDERED: IOHEXOL 350 MG/ML 100 ML (OMNIPAQUE 350) VIAL IV ONE (11:45)
[2019-07-20] MEDS ORDERED: HOLD METFORMIN - RECEIVED CONTRAST 20 ML VIAL IV SCH (11:45)
[2019-07-20] MEDS ORDERED: ONDANSETRON 4 MG/2 ML (SDV) Z0FRAN IVP ONE (11:45)
[2019-07-20] MEDS ORDERED: NS 100 ML (IVPB) BAG IV ONE (11:45)
[2019-07-20] MEDS ORDERED: LACTATED RINGERS 1,000 ML IV ONE (12:33)
--- NOTE | 2019-07-20 12:33 | Diagnostic Imaging Report ---
EXAMINATION: CT Abdomen and Pelvis with intravenous contrast. TECHNIQUE: Multiple contiguous axial images were obtained through the abdomen and pelvis after the uneventful administration of intravenous contrast. All CT scans use one or more of the following dose optimizing techniques: automated exposure control, MA and/or KvP adjustment based on a patient size and exam type, or iterative reconstruction. HISTORY: Abdominal pain. COMPARISON: 01/28/2019 FINDINGS: There is mild atelectasis in the lung bases. The liver is normal without focal lesion. There is no biliary ductal dilation. Gallbladder is absent. Pancreas is normal. Spleen is normal. Adrenal glands are normal. The kidneys are normal. There is no hydronephrosis. Urinary bladder is normal. A 5.0 x 3.6 cm right adnexal cyst is similar to prior exam. There is severe diverticulitis of the sigmoid colon. There is a small amount of extraluminal gas likely representing a perforated diverticulum. The air is contained adjacent to the colon without free air elsewhere in the abdomen. There is no drainable fluid collection. No free fluid or air. No abdominal or pelvic lymphadenopathy. Aorta is normal in caliber without aneurysm. There are no suspicious osseous lesions. IMPRESSION: 1. Severe sigmoid diverticulitis with a focal small contained perforation but no drainable fluid collection and no free air elsewhere within the abdomen. 2. Unchanged right adnexal cyst measuring up to 5.0 cm. In a patient of this age this is concerning for an ovarian neoplasm and gynecologic evaluation is recommended. Critical findings communicated to Dr. Schulz by Dr. Mahoney on 07/20/2019 at 12:30 p.m. Dictated by: Dictated on workstation # [id number]
[2019-07-20] MEDS ORDERED: LEVOFLOXACIN 750 MG/150 ML IV 150 ML IV ONE (12:45)
[2019-07-20 14:00] VITALS: BP 120/80
[2019-07-20] MEDS: NS IV 1000 ML 1,000 ML IV SCH ×2 (14:12→22:59)
[2019-07-20] MEDS ORDERED: NS IV 1000 ML 1,000 ML ONE (14:12)
--- NOTE | 2019-07-20 14:26 | History & Physical-Hospitalist ---
History of Present Illness HPI/Chief Complaint Chief complaint: Abdominal pain History of present illness: This is a 59-year-old patient of [facility] who is a female but transitioning to a male who presented to the ER with left lower quadrant abdominal pain found to have acute diverticulitis with perforation but no evidence of any acute abdomen requiring emergent surgery. Dr. Alvarez was consulted and will monitor closely. Also a large ovarian cyst on the right side will require gynecology evaluation due to the age of 59 and hormonal modification in the transitioning to a male could require additional follow-up. Patient has RA and sees Dr Holloway as his PCP. 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 Source: patient Exam Limitations: no limitations Date Seen 07/20/19 Time Seen by a Provider: 15:00 Attending Physician Marley Ramon,Babatunde PAVON Referring Physician Date of Admission Jul 20, 2019 at 13:00 Home Medications & Allergies Home Medications Reviewed patient Home Medication Reconciliation performed by pharmacy medication reconciliations nuclear medicine technician and/or nursing. Patients Allergies have been reviewed. Allergies Allergies Coded Allergies Penicillins (Verified Allergy, Unknown, 01/28/19) codeine (Verified Allergy, Unknown, 01/28/19) Past Rufxtzo-Piiyke-Xlepll Hx Past Med/Social Hx: Reviewed Nursing Past Med/Soc Hx, Reviewed and Corrections made Patient Social History Marrital Status: single Alcohol Use: Denies Use Recreational Drug Use: No Smoking Status: Former Smoker Former Smoker, Quit: Jul 18, 2003 Recent Foreign Travel: No Contact w/other who traveled: No Recent Hopitalizations: No Recent Infectious Disease Expo: No Immunizations Up To Date Tetanus Booster (TDap): Unknown Date of Pneumonia Vaccine: Sep 30, 2016 Seasonal Allergies Seasonal Allergies: No Past Medical History Surgeries: Gallbladder, Orthopedic Cardiac: Hypertension Musculoskeletal: Rheumatoid Arthritis Psychosocial: Depression Family History Diabetes, Hypertension Review of Systems Constitutional: malaise, weakness Gastrointestinal: abdominal pain (LLQ), loss of appetite Physical Exam Physical Exam Vital Signs Vital Signs - First Documented 07/20/19 08:37 Temp 37.0 Pulse 107 Resp 18 B/P (MAP) 154/95 (114) Pulse Ox 99 Capillary Refill : Less Than 3 Seconds Height, Weight, BMI Height: 5'5.00" Weight: 180lbs. oz. 81.100530cx; 30.76 BMI Method:Stated General Appearance: Chronically ill, Mild Distress Eyes: Right Eye Normal Inspection, Right Eye PERRL HEENT: PERRL/EOMI, Normal ENT Inspection, Pharynx Normal, Moist Mucous Membranes Neck: Full Range of Motion, Normal Inspection, Non Tender Respiratory: Chest Non Tender, Lungs Clear, Normal Breath Sounds, No Accessory Muscle Use, No Respiratory Distress Cardiovascular: Regular Rate, Rhythm, No Edema, No Gallop, No JVD, No Murmur, Normal Peripheral Pulses Gastrointestinal: Normal Bowel Sounds, No Organomegaly, No Pulsatile Mass, Soft, Tenderness Back: Normal Inspection, No CVA Tenderness, No Vertebral Tenderness Extremity: Normal Capillary Refill, Normal Inspection, Normal Range of Motion, Non Tender, No Calf Tenderness, No Pedal Edema Neurologic/Psychiatric: Alert, Oriented x3, No Motor/Sensory Deficits, Normal Mood/Affect Skin: Normal Color, Warm/Dry Lymphatic: No Adenopathy Results Results/Procedures Labs Laboratory Tests 07/20/19 08:57 Patient resulted labs reviewed. Assessment/Plan Admission Diagnosis Assessment: Acute diverticulitis with perforation Abdominal pain Leukocytosis Gender transitioning to mail Plan: IV antibiotics General surgery consultation appreciated Pain control Admission Status: Inpatient Order (span 2 midnights) Reason for Inpatient Admission: Diverticulitis with perf Diagnosis/Problems Diagnosis/Problems (1) Diverticulitis of colon with perforation Status: Acute Qualifiers: Diverticulitis bleeding: without bleeding Qualified Codes: K57.20 - Diverticulitis of large intestine with perforation and abscess without bleeding (2) Nausea and vomiting Status: Acute Qualifiers: Vomiting type: unspecified Vomiting Intractability: non-intractable Qualified Codes: R11.2 - Nausea with vomiting, unspecified (3) Right ovarian cyst Status: Acute Clinical Quality Measures DVT/VTE Risk/Contraindication: Risk Factor Score Per Nursin RFS Level Per Nursing on Admit: 4+=Very High MARLEY RAMON DO Jul 20, 2019 14:26
[2019-07-20] MEDS ORDERED: metroNIDAZOLE 500 MG/100 ML IVPB (PRE-MIX) IV SCH (14:32)
[2019-07-20] MEDS ORDERED: CATHETER FLUSH 10 ML SYR IV PRN (14:45)
[2019-07-20] MEDS ORDERED: ONDANSETRON 4 MG/2 ML (SDV) Z0FRAN IVP PRN (14:45)
[2019-07-20] MEDS: ACETAMINOPHEN 325 MG TABLET PO PRN (14:53)
[2019-07-20] MEDS ORDERED: CYAN-41 PO (15:19)
[2019-07-20] MEDS ORDERED: ASCO-262 PO (15:19)
[2019-07-20] MEDS ORDERED: FERR-84 PO (15:19)
[2019-07-20] MEDS: fentaNYL INJECTION 100 MCG/2 ML AMP IVP PRN ×3 (15:37→20:09)
--- NOTE | 2019-07-20 15:59 | CONSULTATION REPORT ---
DATE OF SERVICE: 07/20/2019 ADMITTING PHYSICIAN: Dr. Liao. ATTENDING PRIMARY CARE PHYSICIAN: Dr. Star Holloway. HISTORY OF PRESENT ILLNESS: This is a 59-year-old female who identifies as a male who presented to the Emergency Department by private vehicle with left lower quadrant abdominal pain that started yesterday. She did also have some associated nausea and vomiting; however, today does not have any nausea. She does not report any red blood per rectum nor any dark tarry stools. She does not report any urinary symptoms. She does not ever having these symptoms before in the past. He has not had a colonoscopy in the past. PAST MEDICAL HISTORY: Hypertension, rheumatoid arthritis, depression. PAST SURGICAL HISTORY: Carpal tunnel release, laparoscopic cholecystectomy. ALLERGIES: PENICILLIN. CODEINE. MEDICATIONS: Hydrocodone p.r.n. PAST SOCIAL HISTORY: Previous smoker, quit 2002. Negative alcohol. FAMILY HISTORY: Noncontributory. VITAL SIGNS: Temperature 37.0, blood pressure 154/95, pulse 107, respirations 18, pulse ox 99% on room air. REVIEW OF SYSTEMS: A well-nourished female in no acute distress. She is not experiencing any shortness of breath or difficulty breathing. No chest pain, palpitations or diaphoresis. She did have nausea and an episode of vomiting yesterday with associated pain in the left lower abdominal quadrant, which persisted until today. No reported history of red blood per rectum nor any dark tarry stools. No fever or chills. No recent inadvertent weight loss. All other review of systems are negative. PHYSICAL EXAMINATION: CHEST: Clear. Good breath sounds bilaterally. HEART: Regular, no murmurs. EXTREMITIES: No lower extremity edema, negative Homans sign. HEENT: No scleral icterus. NECK: No cervical lymphadenopathy. ABDOMEN: Soft, nondistended. There is pain in the left lower abdominal quadrant upon palpation with voluntary guarding, no rebound. SKIN: Warm, dry. LABORATORY DATA: WBC 11.5, hemoglobin 12.8, hematocrit 39, platelets 253. ASSESSMENT AND PLAN: A 59-year-old female that identifies as a male with what appears to be a contained perforated sigmoid diverticulitis as well as a large right ovarian cyst. Our recommendation is to proceed with conservative medical therapy with bowel rest and IV antibiotics as well as close monitoring by physical examination as well as laboratory work. If she improves, we will continue with this and slowly start and advance diet as tolerated. She will also need a followup colonoscopy at some point and also to evaluate the extent of her diverticulosis. Due to this complication of diverticulosis and diverticulitis, she already does meet requirements for segmental resection of the involved portion of the colon; however, this would be more ideal in an outpatient setting. Job ID: [id number] DocumentID: [id number] Dictated Date: 07/20/2019 15:34:14 Grants Manager Date: 07/20/2019 15:59:17 Dictated By: ANTOINE FISHER MD MTDD
[2019-07-20 16:00] VITALS: BP 93/54
[2019-07-20] MEDS ORDERED: IBUPROFEN TABLET 200 MG TAB PO PRN (16:30)
[2019-07-20] MEDS ORDERED: PIPERACILLIN/TAZO 4.5 GM/NS 100 ML IV NR ×2 (17:00)
[2019-07-20] MEDS: ENOXAPARIN 40 MG/0.4 ML (LOVENOX) SYR SC SCH (17:12)
--- NOTE | 2019-07-20 17:20 | Consultation ---
FAUSTINO CARRASCO MED STUDENT 07/20/19 1720: HPI History of Present Illness: HPI/Chief Complaint Patient is a 59 year-old female that identifies as a male who presented to the ER this morning with abdominal pain in the left lower quadrant. He states that the abdominal pain started in the suprapubic region around noon on 07/19/19 and became worse with time. He experienced associated fevers, chills, nausea, and vomiting the following morning, which prompted him to report to the ER. The patient was admitted for management of diverticulitis with perforation. Dr. Chavez was consulted due to the presence of concerning adnexal mass seen on imaging during evaluation. The mass is unchanged from previous imaging performed on 01/28/19 measuring up to 5.0 cm. The patient stated that he was notified of the mass at this time, but they were more worried about getting his gallbladder removed. The patient states that the mass has not been causing any symptoms and denies any pelvic discomfort, abdominal bloating, changes in bowel habits, and abnormal uterine bleeding. The patient states that he has never had a gynecological exam, and he stopped having menstrual cycles approximately 10 years ago, which were normal up to that point. He denied any hormone therapy in the past. The patient also denied any known family history of gynecologic malignancies. Source: patient Date Seen 07/20/19 Attending Physician Marley Liao DO PCP Self,Babatunde PAVON Referring Physician Date of Admission Jul 20, 2019 at 13:00 Home Medications & Allergies Home Medications Reviewed patient Home Medication Reconciliation performed by pharmacy medication reconciliations rail technician and/or nursing. Patients Allergies have been reviewed. Allergies Allergies Coded Allergies Penicillins (Verified Allergy, Unknown, 01/28/19) codeine (Verified Allergy, Unknown, 01/28/19) Past Pyqqxhg-Qzsyiv-Nyfoql Hx Past Med/Social Hx: Reviewed Nursing Past Med/Soc Hx, Reviewed and Corrections made Patient Social History Marrital Status: single Alcohol Use: Denies Use Recreational Drug Use: No Smoking Status: Former Smoker Former Smoker, Quit: Jul 18, 2003 Recent Foreign Travel: No Contact w/other who traveled: No Recent Hopitalizations: No Recent Infectious Disease Expo: No Immunizations Up To Date Tetanus Booster (TDap): Unknown Date of Pneumonia Vaccine: Sep 30, 2016 Seasonal Allergies Seasonal Allergies: No Past Medical History Surgeries: Gallbladder, Orthopedic Cardiac: Hypertension Musculoskeletal: Rheumatoid Arthritis Psychosocial: Depression Family History Diabetes, Hypertension Review of Systems Constitutional: chills, fever Gastrointestinal: LLQ, diarrhea Physical Exam Physical Exam Vital Signs Vital Signs - First Documented 07/20/19 08:37 Temp 37.0 Pulse 107 Resp 18 B/P (MAP) 154/95 (114) Pulse Ox 99 Capillary Refill : Less Than 3 Seconds Height, Weight, BMI Height: 5'5.00" Weight: 180lbs. oz. 81.306886nu; 30.76 BMI Method:Stated General Appearance: Chronically ill, Mild Distress Eyes: Right Eye Normal Inspection, Right Eye PERRL HEENT: PERRL/EOMI, Normal ENT Inspection, Pharynx Normal, Moist Mucous Membranes Neck: Full Range of Motion, Normal Inspection, Non Tender Respiratory: Chest Non Tender, Lungs Clear, Normal Breath Sounds, No Accessory Muscle Use, No Respiratory Distress Cardiovascular: Regular Rate, Rhythm, No Edema, No Gallop, No JVD, No Murmur, Normal Peripheral Pulses Gastrointestinal: Normal Bowel Sounds, No Organomegaly, No Pulsatile Mass, Soft, Tenderness Back: Normal Inspection, No CVA Tenderness, No Vertebral Tenderness Extremity: Normal Capillary Refill, Normal Inspection, Normal Range of Motion, Non Tender, No Calf Tenderness, No Pedal Edema Neurologic/Psychiatric: Alert, Oriented x3, No Motor/Sensory Deficits, Normal Mood/Affect Skin: Normal Color, Warm/Dry Lymphatic: No Adenopathy Results Results/Procedures Labs Laboratory Tests 07/20/19 08:57 Patient resulted labs reviewed. Imaging: Reviewed Imaging Films Imaging CT ABD and Pelvis 07/20/19 IMPRESSION: 1. Severe sigmoid diverticulitis with a focal small contained perforation but no drainable fluid collection and no free air elsewhere within the abdomen. 2. Unchanged right adnexal cyst measuring up to 5.0 cm. In a patient of this age this is concerning for an ovarian neoplasm and gynecologic evaluation is recommended. Assessment/Plan Assessment and Plan Assess & Plan/Chief Complaint Right adnexal mass -Dr. Chavez has reviewed the imaging displaying a right adnexal cyst unchanged from previous imaging on 01/28/19. An ultrasound has been ordered for further evaluation. The patient is currently undergoing treatment for diverticulitis with perforation, so it is recommended that the patient follow up for further management of the cyst after resolution of diverticulitis. Clinical Quality Measures DVT/VTE Risk/Contraindication: Risk Factor Score Per Nursin RFS Level Per Nursing on Admit: 4+=Very High ALINE CHAVEZ DO 07/21/19 0753: Supervisory-Addendum Brief Verification & Attestation Participated in pt care: history Personally performed: exam Care discussed with: Medical Student Procedures: n/a Results interpretation: Verified all documentation Agree with subjective gathered by medical student and exam which I personally confirmed as accurate. 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 CA-125 at this point with the patient having diverticular disease and acute inflammation of the abdominal peritoneum will be falsely elevated. The other two suggestive markers of malignancy on CT were negative as well(ascites, and pelvic/periaortic lymphadenopathy). Ordering an US today for a more accurate baseline, and will have the patient follow up. We discussed with the patient the findings and that for now this looks stable. Will discuss conservative monitor vs surgical management after this acute episode is resolved, and in an outpatient setting. FAUSTINO CARRASCO MED STUDENT Jul 20, 2019 17:20 ALINE CHAVEZ DO Jul 21, 2019 07:53
[2019-07-20 20:00] VITALS: BP 107/59
[2019-07-20] MEDS: HYDROcodone/APAP 7.5 MG/325 MG (LORTAB, LORCET PLUS) TABLET PO PRN (22:18)
[2019-07-20] MEDS ORDERED: NS (IVPB) 100 ML ONE (22:43)
[2019-07-20] MEDS ORDERED: PIPERACILLIN/TAZO 4.5 GM VIAL (ZOSYN) IV ONE (22:43)
[2019-07-20] MEDS: PIPERACILLIN/TAZOBACTAM (BULK) 4.5 GM in NS (IVPB) 100 ML IV SCH (22:59)
[2019-07-21] VITALS: BP 108/60
[2019-07-21] MEDS: fentaNYL INJECTION 100 MCG/2 ML AMP IVP PRN ×2 (01:38→07:53)
[2019-07-21 03:04] LABS: BASOPHILS % (AUTO) 0 % (0-10); EOSINOPHILS % (AUTO) 0 % (0-10); HEMATOCRIT 32 % (40-54); HEMOGLOBIN 10.4 G/DL (13.3-17.7); LYMPHOCYTES # (AUTO) 0.8 X 10^3 (1.0-4.0); LYMPHOCYTES % (AUTO) 9 % (12-44); MEAN CORPUSCULAR HEMOGLOBIN 27 PG (25-34); MEAN CORPUSCULAR HGB CONC 33 G/DL (32-36); MEAN CORPUSCULAR VOLUME 83 FL (80-99); MEAN PLATELET VOLUME 10.7 FL (7.4-10.4); MONOCYTES # (AUTO) 0.6 X 10^3 (0.0-1.0); MONOCYTES % (AUTO) 7 % (0-12); NEUTROPHILS # (AUTO) 7.7 X 10^3 (1.8-7.8); NEUTROPHILS % (AUTO) 84 % (42-75); PLATELET COUNT 216 10^3/uL (130-400); RED CELL DISTRIBUTION WIDTH 14.4 % (10.0-14.5); WHITE BLOOD COUNT 9.1 10^3/uL (4.3-11.0)
[2019-07-21 03:20] LABS: ALANINE AMINOTRANSFERASE 12 U/L (0-55); ALBUMIN 3.1 GM/DL (3.2-4.5); ALKALINE PHOSPHATASE 72 U/L (40-136); BILIRUBIN,TOTAL 0.8 MG/DL (0.1-1.0); BUN/CREATININE RATIO 8; CALCIUM 7.9 MG/DL (8.5-10.1); CARBON DIOXIDE 21 MMOL/L (21-32); CHLORIDE 108 MMOL/L (98-107); CREATININE SERUM 0.71 MG/DL (0.60-1.30); GFR ESTIMATED > 60; GLUCOSE 147 MG/DL (70-105); SODIUM 139 MMOL/L (135-145); TOTAL PROTEIN 5.4 GM/DL (6.4-8.2)
[2019-07-21 04:00] VITALS: BP 109/65
[2019-07-21] MEDS: NS IV 1000 ML 1,000 ML IV SCH ×2 (07:17→14:58)
[2019-07-21 08:00] VITALS: BP 106/55
[2019-07-21] MEDS: PIPERACILLIN/TAZOBACTAM (BULK) 4.5 GM in NS (IVPB) 100 ML IV SCH ×3 (08:16→22:16)
[2019-07-21] MEDS ORDERED: LEVOFLOXACIN 750 MG/D5W 150 ML PRE-MIX IV SCH (09:00)
--- NOTE | 2019-07-21 11:09 | Progress Note - Hospitalist ---
DAPHNE BAUTISTA,MED STUDENT 07/21/19 1109: Subjective HPI/CC On Admission Date Seen by Provider: Jul 21, 2019 Time Seen by Provider: 09:25 Chief complaint: Abdominal pain History of present illness: This is a 59-year-old patient of formerly [facility] who is a female but transitioning to a male who presented to the ER with left lower quadrant abdominal pain found to have acute diverticulitis with perforation but no evidence of any acute abdomen requiring emergent surgery. Dr. Alvarez was consulted and will monitor closely. Also a large ovarian cyst on the right side will require gynecology evaluation due to the age of 59 and hormonal modification in the transitioning to a male could require additional follow-up. Patient has RA and sees Dr Holloway as his PCP. 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 Subjective/Events-last exam Patient is feeling better today. He had some increased abdominal pain overnight that he described as gas pain. He continues to pass flatus and had a normally formed, non-bloody bowel movement yesterday morning. He complains of some increased joint pain since stopping Xeljanz due to contraindication with antibiotics. He states that he would like to follow up outpatient for ovarian cyst once current illness resolves. Objective Exam Vital Signs Vital Signs Date Time Temp Pulse Resp B/P (MAP) Pulse Ox O2 Delivery O2 Flow Rate FiO2 07/21/19 08:00 92 9 106/55 (72) 91 Nasal Cannula 1.00 07/21/19 07:54 37.1 Capillary Refill : Less Than 3 Seconds General Appearance: No Apparent Distress, WD/WN HEENT: PERRL/EOMI, Pharynx Normal Neck: Non Tender, Supple Respiratory: Chest Non Tender, Lungs Clear, Normal Breath Sounds, No Accessory Muscle Use, No Respiratory Distress Cardiovascular: Regular Rate, Rhythm, No Murmur Gastrointestinal: Soft; No Distended; Tenderness (minimal tenderness in suprapubic region, improved from yesterday) Extremity: No Calf Tenderness, No Pedal Edema Neurologic/Psychiatric: Alert, Normal Mood/Affect Skin: Normal Color, Warm/Dry Lymphatic: No Adenopathy Results/Procedures Lab Laboratory Tests 07/21/19 02:40 Patient resulted labs reviewed. Imaging: Reviewed Imaging Films Assessment/Plan Assessment and Plan Assess & Plan/Chief Complaint Assessment: Acute diverticulitis with perforation Abdominal pain Leukocytosis Right ovarian cyst Gender transitioning to male Plan: IV antibiotics Pain control Clear liquid diet PT and OT ordered IRF evaluation Dr. Alvarez following, plan is for outpatient colonoscopy and possible colon resection in the future Dr. Chavez consulted for ovarian cyst and plans for ultrasound and outpatient management once current acute illness resolves. Clinical Quality Measures DVT/VTE Risk/Contraindication: Risk Factor Score Per Nursin RFS Level Per Nursing on Admit: 4+=Very High MARLEY RAMON DO 07/21/192051: Subjective Subjective/Events-last exam Pt feeling much better. Passing flatus. Transferring to fourth floor as long as BP and HR remain stable. Dr. Chavez will see her as an outpatient to evaluate the cyst on her right ovary. Holding rheumatoid arthritis medication due to the acute infection. Zosyn is tolerated even though she has a PCN allergy. PT and OT will be ordered. Woman transitioning to a male. Review of Systems General: Fatigue Gastrointestinal: Abdominal Pain Objective Exam General Appearance: No Apparent Distress, WD/WN Respiratory: Lungs Clear Cardiovascular: Regular Rate, Rhythm Genital/Rectal: Tenderness Neurologic/Psychiatric: Alert Assessment/Plan Assessment and Plan Assess & Plan/Chief Complaint Assessment: Acute diverticulitis with perforation Abdominal pain Leukocytosis Gender transitioning to mail Plan: IV antibiotics General surgery consultation appreciated Pain control Diagnosis/Problems Diagnosis/Problems (1) Diverticulitis of colon with perforation Status: Acute Qualifiers: Qualified Codes: K57.20 - Diverticulitis of large intestine with perforation and abscess without bleeding (2) Nausea and vomiting Status: Acute Qualifiers: Qualified Codes: R11.2 - Nausea with vomiting, unspecified Supervisory-Addendum Brief Verification & Attestation Participated in pt care: history, MDM, physical Personally performed: exam, history, MDM, supervision of care Care discussed with: Medical Student Procedures: n/a Results interpretation: Verified all documentation Verification and Attestation of Medical Student E/M Service A medical student performed and documented this service in my presence. I reviewed and verified all information documented by the medical student and made modifications to such information, when appropriate. I personally performed the physical exam and medical decision making. Marley Ramon, Jul 21, 2019,20:51 DAPHNE BAUTISTA,MED STUDENT Jul 21, 2019 11:09 MARLEY RAMON DO Jul 21, 2019 20:52
--- NOTE | 2019-07-21 13:08 | Physical Therapy Evaluation ---
PT Evaluation-General Medical Diagnosis Admission Date Jul 20, 2019 at 13:00 Medical Diagnosis: diverticulitis with perforation Onset Date: Jul 20, 2019 Therapy Diagnosis Therapy Diagnosis: debility Height/Weight Height (Feet): 5 Height (Inches): 5.00 Weight (Pounds): 180 Precautions Precautions/Isolations: Standard Precautions Referral Physician: Yanni Reason for Referral: Evaluation/Treatment Medical History Pertinent Medical History: HTN, Rheumatoid Arthritis Current History ED with lower abdominal pain Reviewed History: Yes Social History Home: Single Level Current Living Status: Spouse Prior Prior Level of Function SCALE: Activities may be completed with or without assistive devices. 9-Reazcdgxse-chxmjtw completes the activity by him/herself with no assistance from a helper. 5-Set-up or Clean-up Assistance-helper sets up or cleans up; patient completes activity. [place] assists only prior to or following the activity. 4-Supervision or Touching Assistance-helper provides verbal cues and/or touching/steadying and/or contact guard assistance as patient completes activity. Assistance may be provided throughout the activity or intermittently. 3-Partial/Moderate Assistance-helper does LESS THAN HALF the effort. [place] lifts, holds or supports trunk or limbs, but provides less than half the effort. 2-Substantial/Maximal Assistance-helper does MORE THAN HALF the effort. [place] lifts or holds trunk or limbs and provides more than half the effort. 3-Hotohqusq-wlwgbt does ALL the effort. Patient does none of the effort to complete the activity. Or, the assistance of 2 or more helpers is required for the patient to complete the activity. If activity was not attempted, code reason: 7-Patient Refused. 9-Not Applicable-not attempted and the patient did not perform the activity before the current illness, exacerbation or injury. 10-Not Attempted due to Environmental Limitations-(lack of equipment, weather restraints, etc.). 88-Not Attempted due to Medical Conditions or Safety Concerns. Bed Mobility: 6 Transfers (B,C,W/C): 6 Gait: 6 Stairs: 6 Wheelchair Mobility: 9 Indoor Mobility (Ambulation): Independent Stairs: Independent Prior Devices Use: None PT Evaluation-Current Subjective Patient agrees to PT. Pain Numeric Pain Scale: 0-No Pain Location: No Pain Reported Objective Patient Orientation: Normal For Age Attachments: IV ROM/Strength ROM Lower Extremities bilateral LE WFL Strength Lower Extremities 5/5 bilateral LE Integumentary/Posture Integumentary refer to nursing notes Bowel Incontinence: No Bladder Incontinence: No Posture WFL Neuromuscular (Tone, Coordination, Reflexes) grossly intact Sensory Vision: Functional Hearing: Functional Sensation Right Lower Extremit: Intact Sensation Left Lower Extremity: Intact Transfers Roll Left to Right (QC): 6 Sit to Lying (QC): 6 Lying to Sitting/Side of Bed(Q: 6 Sit to Stand (QC): 6 Chair/Eid-je-Hfryk Xfer(QC): 6 Gait Does the Patient Walk?: Yes Mode of Locomotion: Walk Anticipated Mode of Locomotion: Walk Walk 10 feet (QC): 6 Walk 50 ft with 2 Turns(QC): 6 Walk 150 ft (QC): 6 Distance: 300' Gait Assistive Device: None Comments/Gait Description safe and functional with no deviation Wheelchair Training Does the Pt Use a Wheelchair?: No Balance Sitting Static: Normal Sitting Dynamic: Normal Standing Static: Normal Standing Dynamic: Normal Assessment/Needs 59 y.o. male, is currently at [facility] with all gross motor skills and does not require skilled therapy intervention. Rehab Potential: Good PT Plan Treatment/Plan Treatment Plan: Discontinue PT, goals met Treatment Plan: Other Treatment Duration: Jul 21, 2019 Frequency: 1 time per week Estimated Hrs Per Day: .25 hour per day Patient and/or Family Agrees t: Yes Time/GCodes Time In: 1100 Time Out: 1115 Total Billed Treatment Time: 15 Total Billed Treatment 1 visit EVModC 15 min DAVON GARCIAS PT Jul 21, 2019 13:08
[2019-07-21] MEDS: ENOXAPARIN 40 MG/0.4 ML (LOVENOX) SYR SC SCH (14:58)
[2019-07-21] MEDS: HYDROcodone/APAP 7.5 MG/325 MG (LORTAB, LORCET PLUS) TABLET PO PRN (14:59)
--- NOTE | 2019-07-21 15:24 | Occupational Therapy Eval ---
OT Evaluation-General/PLF Medical Diagnosis Admission Date Jul 20, 2019 at 13:00 Medical Diagnosis: diverticulitis with perforation Onset Date: Jul 20, 2019 Therapy Diagnosis Therapy Diagnosis: Decreased I/ADL function Height/Weight Height (Feet): 5 Height (Inches): 5.00 Weight (Pounds): 180 Precautions Precautions/Isolations: Standard Precautions Safety Interventions: None Referral Physician: Yanni Referral Reason: Activity Tolerance, Self Care, Evaluation/Treatment, Strengthening/ROM Medical History Pertinent Medical History: HTN, Rheumatoid Arthritis Current History ER secondary to L lower quadrant pain; acute diverticulitis with perforation Reviewed History: Yes Social History Home: Single Level Current Living Status: Spouse Entry Into Home: Stairs Without Railing Steps Into Home: 2 ADL-Prior Level of Function SCALE: Activities may be completed with or without assistive devices. 5-Ucssarhjnl-nqerejj completes the activity by him/herself with no assistance from a helper. 5-Set-up or Clean-up Assistance-helper sets up or cleans up; patient completes activity. [place] assists only prior to or following the activity. 4-Supervision or Touching Assistance-helper provides verbal cues and/or touching/steadying and/or contact guard assistance as patient completes activity. Assistance may be provided throughout the activity or intermittently. 3-Partial/Moderate Assistance-helper does LESS THAN HALF the effort. [place] lifts, holds or supports trunk or limbs, but provides less than half the effort. 2-Substantial/Maximal Assistance-helper does MORE THAN HALF the effort. [place] lifts or holds trunk or limbs and provides more than half the effort. 6-Vmdqbtdhx-ulibte does ALL the effort. Patient does none of the effort to complete the activity. Or, the assistance of 2 or more helpers is required for the patient to complete the activity. If activity was not attempted, code reason: 7-Patient Refused. 9-Not Applicable-not attempted and the patient did not perform the activity before the current illness, exacerbation or injury. 10-Not Attempted due to Environmental Limitations-(lack of equipment, weather restraints, etc.). 88-Not Attempted due to Medical Conditions or Safety Concerns. ADL PLOF Comments IND without AE Self Care: Independent Functional Cognition: Independent DME/Equipment: Shower DME/Equipment Comments Walk in shower, no sc or gb Occupation: utility service worker Drive Self: Yes OT Current Status Subjective psychological aide states pt up ablib in room. Pt seen sitting EOB, states slight discomfort from lower abdomen. Pt agreeable to OT evaluation. Mental Status/Objective Patient Orientation: Person, Place, Time, Situation, Normal For Age Attachments: IV Current Glasses/Contacts: Yes Hearing Aids: No Dentures/Partials: Yes Hand Dominance: Right Upper Extremity ROM WFL BUE Upper Extremity Coordination Delayed, ulnar drift of L hand Upper Extremity Sensation WFL BUE Upper Extremity Strength R 4+/5 L 4-/5 dramatic critic strength similar bilaterally ADL-Treatment Eating (QC): 6 Oral Hygiene (QC): 6 (Pt takes dentures from mouth, states he is soaking) Shower/Bathe Self (QC): 7 Upper Body Dressing (QC): 6 Lower Body Dressing (QC): 6 (per pt) On/Off Footwear (QC): 6 (per pt) Toileting Hygiene (QC): 6 (per pt) Other Treatments Pt completes evaluation EOB. Pt educated of OT role. Pt states slight discomfort, no grimacing during UE MMT. Pt educated on use of grab bars/ shower chair in walk in shower, pt physically capable of standing throughout. Pt states he completed dressing and toileting tasks with IND on this date, denies need for further ADLs. Pt states no concerns for return to home and no difficulty with ADLs today. Pt left in room, call light in reach, all needs met. Education OT Patient Education: Correct positioning, Progress toward Goal/Update tx plan, Purpose of tx/functional activities, Safety issues, Use of adapted equipment Teaching Recipient: Patient Teaching Methods: Demonstration, Discussion Response to Teaching: Verbalize Understanding, Return Demonstration OT Nursing Home Goals Nursing Home Goals 1=Demonstrate adherence to instructed precautions during ADL tasks. 2=Patient will verbalize/demonstrate understanding of assistive devices/modifications for ADL. 3=Patient will improve strength/tolerance for activity to enable patient to perform ADL's. OT Education/Plan Problem List/Assessment Assessment: No Skilled OT Needs ID'd Discharge Recommendations Plan/Recommendations: Discharge/Goals Met Therapy Discharge Recommendati: Home & Family Treatment Plan/Plan of Care Treatment,Training & Education: Yes Patient would benefit from OT for education, treatment and training to promote independence in ADL's, mobility, safety and/or upper extremity function for ADL's. Plan of Care: OTHER (eval only) Treatment Duration: Jul 21, 2019 Frequency: 1 time per week (eval only) Agreement: Yes Rehab Potential: Good Time/GCodes Start Time: 13:42 Stop Time: 13:50 Total Time Billed (hr/min): 8 Billed Treatment Time 1, EVL (8) MIRELA OROPEZA OTJaquan Jul 21, 2019 15:24
[2019-07-21 16:00] VITALS: BP 138/81
[2019-07-21 20:00] VITALS: BP 112/66
[2019-07-21] MEDS: ACETAMINOPHEN 325 MG TABLET PO PRN (20:13)
[2019-07-22] VITALS: BP 128/78
[2019-07-22] MEDS: NS IV 1000 ML 1,000 ML IV SCH ×3 (00:14→08:24)
[2019-07-22 04:00] VITALS: BP 143/85
[2019-07-22] MEDS: HYDROcodone/APAP 7.5 MG/325 MG (LORTAB, LORCET PLUS) TABLET PO PRN ×2 (06:10→11:06)
[2019-07-22] MEDS: PIPERACILLIN/TAZOBACTAM (BULK) 4.5 GM in NS (IVPB) 100 ML IV SCH ×2 (06:17→15:30)
[2019-07-22] MEDS: fentaNYL INJECTION 100 MCG/2 ML AMP IVP PRN (06:20)
[2019-07-22 08:00] VITALS: BP 129/70
[2019-07-22 12:00] VITALS: BP 131/85
--- NOTE | 2019-07-22 12:05 | Progress Note - Hospitalist ---
JE BAUTISTAAH,MED STUDENT 07/22/19 1205: Subjective HPI/CC On Admission Date Seen by Provider: Jul 22, 2019 Time Seen by Provider: 10:00 Chief complaint: Abdominal pain History of present illness: This is a 59-year-old patient of [facility] who is a female but transitioning to a male who presented to the ER with left lower quadrant abdominal pain found to have acute diverticulitis with perforation but no evidence of any acute abdomen requiring emergent surgery. Dr. Alvarez was consulted and will monitor closely. Also a large ovarian cyst on the right side will require gynecology evaluation due to the age of 59 and hormonal modification in the transitioning to a male could require additional follow-up. Patient has RA and sees Dr Holloway as his PCP. 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 Subjective/Events-last exam Patient reports pain is improved today and he feels ready to move down to 4th floor. He had a bowel movement this morning. He would like to start advancing his diet and also requests incentive spirometer. PT and OT saw yesterday. IRF evaluation reports that he is not a candidate. Objective Exam Vital Signs Vital Signs Date Time Temp Pulse Resp B/P (MAP) Pulse Ox O2 Delivery O2 Flow Rate FiO2 07/22/19 11:36 36.5 07/22/19 10:10 96 Room Air 07/22/19 08:00 73 7 129/70 (89) 1.00 Capillary Refill : Less Than 3 Seconds General Appearance: No Apparent Distress, WD/WN HEENT: PERRL/EOMI, Pharynx Normal Neck: Non Tender, Supple Respiratory: Chest Non Tender, Lungs Clear, Normal Breath Sounds, No Accessory Muscle Use, No Respiratory Distress Cardiovascular: Regular Rate, Rhythm, No Murmur Gastrointestinal: Soft, Tenderness (mild LLQ tenderness, improved from yesterday) Extremity: No Calf Tenderness, No Pedal Edema Neurologic/Psychiatric: Alert, Normal Mood/Affect Skin: Normal Color, Warm/Dry Lymphatic: No Adenopathy Results/Procedures Lab Patient resulted labs reviewed. Imaging: Reviewed Imaging Films Assessment/Plan Assessment and Plan Assess & Plan/Chief Complaint Assessment: Acute diverticulitis with perforation Abdominal pain Leukocytosis Right ovarian cyst Gender transitioning to male Plan: IV antibiotics Pain control Encouraged increased ambulation Incentive spirometer ordered. Dr. Alvarez following, plan is for outpatient colonoscopy and possible colon resection in the future Dr. Chavez consulted for ovarian cyst and plans for ultrasound and outpatient management once current acute illness resolves. Clinical Quality Measures DVT/VTE Risk/Contraindication: Risk Factor Score Per Nursin RFS Level Per Nursing on Admit: 4+=Very High YENNYMARLEY LANZA 07/23/19 1503: Subjective Subjective/Events-last exam Abdominal pain much improved Transferring to fourth floor Ordered IS PT and OT will continue working with Pt BP improved Tachycardia resolved Review of Systems Gastrointestinal: Abdominal Pain Objective Exam General Appearance: No Apparent Distress, WD/WN, Chronically ill Respiratory: Lungs Clear Cardiovascular: Regular Rate, Rhythm Genital/Rectal: Tenderness Neurologic/Psychiatric: Alert, Oriented x3, No Motor/Sensory Deficits, Normal Mood/Affect Assessment/Plan Assessment and Plan Assess & Plan/Chief Complaint Monitor pain Appreciate general surgery Diagnosis/Problems Diagnosis/Problems (1) Diverticulitis of colon with perforation Status: Acute Qualifiers: Qualified Codes: K57.20 - Diverticulitis of large intestine with perforation and abscess without bleeding (2) Nausea and vomiting Status: Acute Qualifiers: Qualified Codes: R11.2 - Nausea with vomiting, unspecified (3) Right ovarian cyst Status: Acute (4) Gallstones Status: Acute Supervisory-Addendum Brief Verification & Attestation Participated in pt care: history, MDM, physical Personally performed: exam, history, MDM, supervision of care Care discussed with: Medical Student Procedures: n/a Results interpretation: Verified all documentation Verification and Attestation of Medical Student E/M Service A medical student performed and documented this service in my presence. I reviewed and verified all information documented by the medical student and made modifications to such information, when appropriate. I personally performed the physical exam and medical decision making. Marley Ramon, Jul 23, 2019,15:01 DAPHNE BAUTISTA,MED STUDENT Jul 22, 2019 12:05 MARLEY RAMON DO Jul 23, 2019 15:03
[2019-07-22] MEDS: ENOXAPARIN 40 MG/0.4 ML (LOVENOX) SYR SC SCH (15:55)
[2019-07-22 16:00] VITALS: BP 138/70
--- NOTE | 2019-07-22 16:30 | Progress Note ---
Subjective Date Seen by a Provider: Jul 22, 2019 Time Seen by a Provider: 15:50 Subjective/Events-last exam Patient seen with Dr. Alvarez. Patient reports doing well. Denies any abdominal pain. Tolerating diet and having BMs. No N/V. No fever/chills. Objective Exam Vital Signs Date Time Temp Pulse Resp B/P (MAP) Pulse Ox O2 Delivery O2 Flow Rate FiO2 07/22/19 16:01 96 Room Air 07/22/19 16:00 36.6 63 20 138/70 (92) 99 Room Air 07/22/19 12:03 96 Room Air 07/22/19 12:00 36.5 72 20 131/85 (100) 97 Room Air 07/22/19 11:36 36.5 07/22/19 11:06 36.5 07/22/19 10:10 96 Room Air 07/22/19 09:00 96 Room Air 07/22/19 08:00 73 7 129/70 (89) 94 Nasal Cannula 1.00 07/22/19 08:00 36.5 07/22/19 08:00 96 Room Air 07/22/19 07:00 72 07/22/19 06:00 70 07/22/19 04:00 Nasal Cannula 1.00 07/22/19 04:00 80 17 143/85 (104) 96 Nasal Cannula 1.00 07/22/19 00:00 81 16 128/78 (95) 91 Nasal Cannula 1.00 07/22/19 00:00 Nasal Cannula 1.00 07/21/19 21:00 Nasal Cannula 2.00 07/21/19 20:00 85 12 112/66 (81) 93 Nasal Cannula 1.00 07/21/19 20:00 Nasal Cannula 1.00 07/21/19 20:00 36.6 07/21/19 19:00 83 I & O 07/22/19 07:00 Intake Total 3840 ml Output Total 1250 ml Balance 2590 ml Capillary Refill : Less Than 3 Seconds General Appearance: No Apparent Distress, WD/WN Neck: Full Range of Motion, Normal Inspection, Non Tender, Supple Respiratory: Normal Breath Sounds, No Accessory Muscle Use, No Respiratory Distress Cardiovascular: Regular Rate, Rhythm, No Murmur Gastrointestinal: normal bowel sounds, non tender, soft Extremity: Normal Capillary Refill, Normal Inspection, Normal Range of Motion Neurologic/Psychiatric: Alert, Oriented x3 Skin: Normal Color, Warm/Dry Assessment/Plan Assessment/Plan Assess & Plan/Chief Complaint A 59-year-old female that identifies as a male with sigmoid diverticulitis with contained perforation, large right ovarian cyst. VSS. Will advance to low residue diet. Continue ambulation. Plan for home tomorrow with low residue diet for 6 weeks. Follow up in office in 2 weeks to schedule outpatient colonoscopy. Follow up with HOT PRESS OPERATOR for ovarian cyst. Clinical Quality Measures DVT/VTE Risk/Contraindication: Risk Factor Score Per Nursin RFS Level Per Nursing on Admit: 4+=Very High PELON NGUYEN GARAGE DOOR OPENER INSTALLER Jul 22, 2019 16:30
[2019-07-22] MEDS ORDERED: AMOX-358 PO (16:43)
--- NOTE | 2019-07-22 16:45 | Discharge Inst-Surgical ---
D/C Lap Instructions-KIDO Reconcile Patient Problems Problems Reviewed?: Yes New, Converted, or Re-Newed RX: RX on Chart Follow Up Appt in 2 weeks Activity as tolerated No driving while on pain medications Incentive Spirometry use every 2 hours while awake Low residue diet for 6 weeks. Follow up in office to schedule outpatient colonoscopy. Avoid Alcohol, Caffeine, Spicy [place] and Acid foods. Drink 64 fluid oz or more of fluids per day. Symptoms to Report: Fever over 101 degree F, Nausea/Vomiting If any problems/questions: Contact your physician or go to Emergency Room PELON NGUYEN APRN Jul 22, 2019 16:45
[2019-07-22 17:50] VITALS: BP 138/70
--- NOTE | 2019-07-23 15:11 | Discharge Summary ---
Discharge Summary Hospital Course Was the Problem List Reviewed?: Yes Problems/Dx: (1) Diverticulitis of colon with perforation Status: Acute Qualifiers: Qualified Codes: K57.20 - Diverticulitis of large intestine with perforation and abscess without bleeding (2) Nausea and vomiting Status: Acute Qualifiers: Qualified Codes: R11.2 - Nausea with vomiting, unspecified (3) Right ovarian cyst Status: Acute (4) Gallstones Status: Acute Hospital Course Date of Admission: Jul 20, 2019 at 13:00 Admission Diagnosis : Family Physician/Provider: Babatunde Holloway MD Date of Discharge: 07/23/19 Discharge Diagnosis: Acute diverticulitis with perforation, gender transitioning female to male, right ovarian cyst likely simple cyst per Dr Chavez Hospital Course: Patient had a short course after admitted for acute diverticulitis with microperforation and was placed NPO with IVF and pain meds and Dr Alvarez was consulted. Patient responded to IVF and tachycardia was resolved at time of DC and patient was stable for f/u next week while completing abx. Labs and Pending Lab Test: Home Meds Active Augmentin 875-125 Tablet (Amoxicillin/Potassium Clav) 1 Each Tablet 1 Each PO BID 7 Days Reported Iron (Ferrous Sulfate) 325 Mg Tablet 325 Mg PO DAILY Vitamin B-12 (Cyanocobalamin (Vitamin B-12)) 1,000 Mcg Tablet 1,000 Mcg PO DAILY Vitamin C (Ascorbate Calcium) 500 Mg Tablet 500 Mg PO DAILY Methotrexate (Methotrexate Sodium) 2.5 Mg Tablet 20 Mg PO WEEK PRN TAKES 8 (2.5MG) TABLETS Klor-Con M10 (Potassium Chloride) 10 Meq Tab.er.prt 10 Meq PO TID Xeljanz (Tofacitinib Citrate) 5 Mg Tablet 5 Mg PO BID Diclofenac Sodium 100 Gm Gel..gram. 4 Gm TOP QID PRN Escitalopram Oxalate 20 Mg Tablet 20 Mg PO DAILY Ibuprofen 800 Mg Tablet 800 Mg PO TID PRN Lisinopril-Hctz 10-12.5 mg Tab (Lisinopril/Hydrochlorothiazide) 1 Each Tablet 0.5 Tab PO DAILY PRN Assessment/Pt Instructions [facility] 1 week Discharge Planning: <30 minutes discharge planning Discharge Instructions Discharge Diet: Soft Diet Activity as Tolerated: Yes Discharge Physical Examination Vital Signs Vital Signs Date Time Temp Pulse Resp B/P (MAP) Pulse Ox O2 Delivery O2 Flow Rate FiO2 07/22/19 17:50 36.6 63 20 138/70 96 Room Air 07/22/19 08:00 1.00 General Appearance: No Apparent Distress, WD/WN, Chronically ill Respiratory: Lungs Clear Cardiovascular: Regular Rate, Rhythm Neurologic/Psychiatric: Alert, Oriented x3, No Motor/Sensory Deficits, Normal Mood/Affect Allergies: Coded Allergies: Penicillins (Verified Allergy, Unknown, 01/28/19) codeine (Verified Allergy, Unknown, 01/28/19) Discharge Summary Date of Admission Jul 20, 2019 at 13:00 Date of Discharge Jul 22, 2019 at 17:50 Admission Diagnosis Assessment: Acute diverticulitis with perforation Abdominal pain Leukocytosis Gender transitioning to mail Plan: IV antibiotics General surgery consultation appreciated Pain control Discharge Diagnosis Monitor pain Appreciate general surgery (1) Diverticulitis of colon with perforation Status: Acute Qualifiers: Qualified Codes: K57.20 - Diverticulitis of large intestine with perforation and abscess without bleeding (2) Nausea and vomiting Status: Acute Qualifiers: Qualified Codes: R11.2 - Nausea with vomiting, unspecified (3) Right ovarian cyst Status: Acute (4) Gallstones Status: Acute Clinical Quality Measures DVT/VTE Risk/Contraindication: Risk Factor Score Per Nursin RFS Level Per Nursing on Admit: 4+=Very High EZ RAMON DO Jul 23, 2019 15:11
== END 2019-07-22 17:50 | disposition home or self-care (01) | DRG 392 ==
LOC: EDUNIT# 08:06 → EDSEX 08:08 → ER 08:08 → ICU 13:00 → EDSEX 13:00 → ICU 07-21 16:38 → 4TH 07-22 09:48
PROVIDERS: ADMIT Internal Medicine; ATTEND Internal Medicine
DX: K57.20 Diverticulitis of large intestine with perforation and abscess without bleeding (principal); N83.201 Unspecified ovarian cyst, right side; D39.11 Neoplasm of uncertain behavior of right ovary; I10 Essential (primary) hypertension; Z87.891 Personal history of nicotine dependence; M06.9 Rheumatoid arthritis, unspecified; F32.9 Major depressive disorder, single episode, unspecified; K80.80 Other cholelithiasis without obstruction
CPT/HCPCS: 36415; 74177; 80053; 81000; 85007; 85025; 85027; 96361; 96365; 96375; 96376

== ENCOUNTER 2019-09-29 14:48 | Outpatient (CLI) | payer BC ==
[~2019-09-29] VITALS: Ht 167.7 cm; Wt 82.7 kg
[~2019-09-29 14:48] MED LIST changes: +AMOX-358 PO; +ASCO-262 PO; +CYAN-41 PO; +DICL100G31 TOP; +ESCI20TA45 PO; +FERR-84 PO; +IBUP-1780 PO; +LISI1TAB29 PO; +METH2.5T PO; +POTA10TA14 PO; +TOFA5TAB PO
== END 2019-09-29 15:04 | disposition home or self-care (01) ==
LOC: PREOP 14:48
PROVIDERS: ATTEND Surgery
DX: Z01.818 Encounter for other preprocedural examination (principal)

== ENCOUNTER 2019-10-05 08:32 | Day surgery (SDC) | payer BC ==
--- NOTE | 2019-09-19 07:52 | HISTORY AND PHYSICAL ---
DATE OF SERVICE: PROCEDURE DATE: 10/05/2019. ATTENDING PHYSICIAN: Dr. Holloway. HISTORY OF PRESENT ILLNESS: This is a 59-year-old female who identifies as a male who was initially seen in 07/2019. He presented to the Emergency Department via private vehicle with left lower quadrant abdominal pain with associated nausea and vomiting. He did undergo a CT scan and was found to have a contained perforation of the sigmoid colon consistent with diverticulitis. He was also found to have a large right ovarian cyst. He was treated with IV antibiotics and bowel rest and this did resolve. It was decided at that time to proceed with a colonoscopy as an outpatient. He was then seen in the office on 08/10/2019 for followup visit. At that time, reports he is doing well. He denied any fever or chills or any other symptoms. He reports that his last colonoscopy was at age 28. He denies any blood in his stool. There was no family history of colon cancer. He denied any issues with any diarrhea, constipation or any abdominal pain at that time. PAST MEDICAL HISTORY: Hypertension, diverticulitis, rheumatoid arthritis. PAST SURGICAL HISTORY: Right hand surgery for arthritis in 03/2018, left hand surgery for arthritis in 06/2018, laparoscopic cholecystectomy in 2018, bilateral carpal tunnel release. ALLERGIES: CODEINE, PENICILLIN. MEDICATIONS: Ibuprofen 800, lisinopril/hydrochlorothiazide, Xeljanz, potassium, iron, methotrexate. SOCIAL HISTORY: Previously smoked 1 pack per day for 25 years, quit in 1999. Positive for chewing tobacco for 18 years, previous for alcohol. FAMILY HISTORY: Sister, cervical cancer at 24 years of age, diabetes, hypertension. Father, diabetes. Mother, hypertension. VITAL SIGNS: Blood pressure is 132/70. Current weight was 182.3 pounds, height 5 feet 6 inches. REVIEW OF SYSTEMS: A well-nourished female in no acute distress. She is not experiencing any shortness of breath or difficulty breathing. No chest pain, palpitations or diaphoresis. No nausea, vomiting or abdominal pain. No diarrhea or constipation. No red blood per rectum. No dark tarry stools. No fever or chills. No recent overt weight loss. All other review of systems negative. PHYSICAL EXAMINATION: CHEST: Clear. Good breath sounds bilaterally. HEART: Regular, no murmurs. EXTREMITIES: No lower extremity edema. Negative Homans sign. HEENT: No scleral icterus. NECK: No cervical lymphadenopathy. ABDOMEN: Soft, nontender, nondistended. No palpable masses. No organomegaly. SKIN: Warm, dry and pink. NEUROLOGIC: Awake, alert and oriented x3. ASSESSMENT AND PLAN: A 59-year-old female who identifies as a male who had a recent episode of diverticulitis is in need of a screening colonoscopy. The risks and benefits of the procedure as well as the procedure and home care instructions were explained to the patient. The patient verbalized understanding of instructions and agrees to this plan. At this time, we will proceed with scheduling the patient for a screening colonoscopy. Job ID: [id number] DocumentID: [id number] Dictated Date: 09/14/2019 10:58:00 Otr Tanker Truck Driver Date: 09/14/2019 11:28:39 Dictated By: PELON NGUYEN APRN
[~2019-10-05] VITALS: Ht 167.7 cm; Wt 82.7 kg
[2019-10-05] VITALS (17 sets, daily range): BP systolic 105–170; BP diastolic 62–99
[2019-10-05] MEDS ORDERED: NS IV 500 ML 500 ML IV PRN (08:40)
[2019-10-05] MEDS ORDERED: LACTATED RINGERS 1,000 ML IV ONE (08:43)
[2019-10-05] MEDS ORDERED: fentaNYL INJECTION 100 MCG/2 ML AMP IVP ONE (08:45)
[2019-10-05] MEDS ORDERED: LIDOCAINE JELLY 2% 6 ML SYRINGE MM PRN (08:45)
[2019-10-05] MEDS ORDERED: fentaNYL INJECTION 100 MCG/2 ML AMP ONE ×2 (09:26→09:27)
[2019-10-05] MEDS ORDERED: LIDOCAINE JELLY 2% 6 ML SYRINGE ONE (09:26)
[2019-10-05] MEDS ORDERED: MIDAZOLAM 5 MG/5 ML (VERSED) VIAL ONE ×2 (09:26)
--- NOTE | 2019-10-05 09:52 | Conscious Sedation/ASA ---
Conscious Sedation Pre-Proced Time 09:30 ASA Score 2 For ASA 3 and 4: Consider anesthesia and medical clearance. Also, for patients with a history of failed moderate sedation consider anesthesia. Airway Lungs Heart ASA score ASA 1: a normal healthy patient ASA 2: a patient with a mild systemic disease (mid diabetes, controlled hypertension, obesity ASA 3: a patient with a severe systemic disease that limits activity (angina, COPD, prior Myocardial infarction) ASA 4: a patient with an incapacitating disease that is a constant threat to life (CHF, renal failure) ASA 5: a moribund patient not expected to survive 24 hrs. (ruptured aneurysm) ASA 6: a declared brain- patient whose organs are being harvested. For emergent operations, add the letter E after the classification Mallampati Classification Grade 2 Sedation Plan Analgesia, Amnesia, Plan communicated to team members, Discussed options with patient/fam, Discussed risks with patient/fam The patient is an appropriate candidate to undergo the planned procedure, sedation, and anesthesia. The patient immediately re-assessed prior to indication. ANTOINE FISHER MD Oct 05, 2019 09:52
--- NOTE | 2019-10-05 09:53 | Progress Note-Pre Operative ---
Pre-Operative Progress Note H&P Reviewed The H&P was reviewed, patient examined and no changes noted. Date Seen by Provider: Oct 05, 2019 Time Seen by Provider: 09:30 Date H&P Reviewed: Oct 05, 2019 Time H&P Reviewed: 09:30 Pre-Operative Diagnosis: screening, hx diverticulitis ANTOINE FISHER MD Oct 05, 2019 09:53
[2019-10-05] MEDS: MIDAZOLAM 5 MG/5 ML (VERSED) VIAL IV PRN ×4 (09:55→10:08)
--- NOTE | 2019-10-05 09:55 | Discharge Inst-Surgical ---
D/C Lap Instructions-NATALIA Follow Up Activity as tolerated High Fiber Diet 25g or more per day Avoid Alcohol, Caffeine, Spicy [place] and Acid foods. Drink 64 fluid oz or more of fluids per day. Symptoms to Report: Fever over 101 degree F, Nausea/Vomiting If any problems/questions: Contact your physician or go to Emergency Room ANTOINE FISHER MD Oct 05, 2019 09:55
[2019-10-05] MEDS ORDERED: ACETAMINOPHEN 325 MG TABLET PO PRN (10:00)
[2019-10-05] MEDS ORDERED: HYDROcodone/APAP 5 MG/325 MG (LORTAB) TAB PO PRN (10:00)
[2019-10-05] MEDS ORDERED: morphine INJ 10 MG/ML 1ML (SYR OR VIAL) IVP PRN ×2 (10:00)
[2019-10-05] MEDS ORDERED: ONDANSETRON 4 MG/2 ML (SDV) Z0FRAN IVP PRN (10:00)
--- NOTE | 2019-10-05 10:34 | Progress Note-Post Operative ---
Post-Operative Progess Note Surgeon (s)/Information Security Engineer (s) Surgeon ANTOINE FISHER MD Information Security Engineer: none Pre-Operative Diagnosis screening, hx diverticulitis Post-Operative Diagnosis chronic stage 2 ext and int hemorrhoids, moderate sigmoid diverticulosis. Procedure & Operative Findings Date of Procedure 10/05/19 Procedure Performed/Findings colonoscopy Anesthesia Type cs Estimated Blood Loss Estimated blood loss (mL): minimal Specimens/Packing Specimens Removed none ANTOINE FISHER MD Oct 05, 2019 10:34
--- NOTE | 2019-10-05 14:26 | OPERATIVE REPORT ---
DATE OF SERVICE: 10/05/2019 ATTENDING PRIMARY CARE PHYSICIAN: Dr. Babatunde Holloway. PREOPERATIVE DIAGNOSES: Screening colonoscopy with history of sigmoid diverticulitis and microperforation. POSTOPERATIVE DIAGNOSES: Chronic stage II external and internal hemorrhoids, mild to moderate sigmoid diverticulosis with no inflammatory changes, no polyps or any neoplasms identified. PROCEDURE PERFORMED: Colonoscopy. SURGEON: Antoine Fisher MD. ANESTHESIA: Conscious sedation. ESTIMATED BLOOD LOSS: Minimal. FINDINGS: Same as postoperative diagnoses. DISPOSITION: The patient tolerated the procedure well. INDICATIONS: The patient is a 59-year-old female identified as a male, who was initially seen in 07/2019. He presented to the emergency department via a private vehicle with left lower quadrant abdominal pain with associated nausea and vomiting and a CT scan was found to have a contained perforation of the sigmoid colon consistent with a diverticulitis, which had walled off. He was treated with IV antibiotics and bowel rest and this did resolve over the time. His last colonoscopy was at age 28. He does not report any family history of colon cancer. DESCRIPTION OF PROCEDURE: The patient was brought to the endoscopy suite and laid in a left lateral decubitus position. After adequate IV pain and sedative medications and conscious sedation anesthesia, a digital rectal examination was performed. Mild chronic stage II external and internal hemorrhoids were identified, which were not actively edematous nor inflamed and no bleeding. Normal sphincter tone was felt and there were no palpable masses. The endoscope was then intubated to the anus and rectum gently insufflated. The endoscope was then advanced to the valves of Hernandez of the rectum with no polyps or any neoplasms identified. Through the sigmoid colon, a mild to moderate sigmoid diverticulosis was identified. There were no mucosal inflammatory changes to indicate any active diverticulitis. The endoscope was then advanced to the remainder of the descending, transverse and ascending colon to the cecum. These segments were normal. There were no polyps or any neoplasms identified throughout the colon or rectum. The endoscope was then slowly withdrawn while taking a second look and suctioning of residual air with no additional findings. The patient tolerated the procedure well. We will recommend medical management with a high fiber diet with 30 grams of fiber daily as well as significant amounts of water to promote soft stools on a daily basis and prevent any episodes of constipation and formed stools. No polyps were identified and there was no family history of colon cancer. If he is asymptomatic, he may wait 10 years for his next colonoscopy; however, if he becomes symptomatic again recurrent episodes of diverticulitis, we will have him follow up. Job ID: [id number] DocumentID: [id number] Dictated Date: 10/05/2019 10:28:23 Net Washer Date: 10/05/2019 14:25:34 Dictated By: ANTOINE FISHER MD
== END 2019-10-05 11:27 | disposition home or self-care (01) ==
LOC: ENDO 08:32
PROVIDERS: ATTEND Surgery
DX: Z12.11 Encounter for screening for malignant neoplasm of colon (principal); K64.4 Residual hemorrhoidal skin tags; K64.1 Second degree hemorrhoids; K57.30 Diverticulosis of large intestine without perforation or abscess without bleeding; I10 Essential (primary) hypertension; Z90.89 Acquired absence of other organs; Z88.2 Allergy status to sulfonamides; Z88.5 Allergy status to narcotic agent; Z79.899 Other long term (current) drug therapy; Z87.891 Personal history of nicotine dependence; Z80.49 Family history of malignant neoplasm of other genital organs; Z83.3 Family history of diabetes mellitus

== ENCOUNTER → 2019-10-13 | Outpatient (CLI) | payer BC ==
--- NOTE | 2019-10-13 08:32 | Diagnostic Imaging Report ---
CLINICAL HISTORY: Pain in both hands for one year. No known injury. COMPARISON: None. TECHNIQUE: 6 views of the bilateral hands. FINDINGS: There is no acute fracture or dislocation of the bilateral hands. There is suggestion of ulnar subluxation of the MCP joints bilaterally, more pronounced on the right. There is joint space loss throughout both hands, most prominent in the CMC joints and DIP joints. The soft tissues of the bilateral hands is unremarkable. IMPRESSION: 1. No acute fracture or dislocation in the bilateral hands. 2. Arthritic changes throughout both hands, most prominent at the CMC joints and DIP joints. There is also suggestion of ulnar subluxation of the MCP joints. These findings can be seen with osteoarthritis; however, rheumatologic workup should be considered. Dictated by: Dictated on workstation # [id number]
== END ==
LOC: RAD FS 08:11
PROVIDERS: ATTEND Nurse Practitioner
DX: M19.041 Primary osteoarthritis, right hand (principal); M19.042 Primary osteoarthritis, left hand

== ENCOUNTER → 2019-12-15 | Outpatient (CLI) | payer BC ==
--- NOTE | 2019-12-15 08:50 | Diagnostic Imaging Report ---
INDICATION: Right shoulder pain AP, oblique, and transscapular views of the right shoulder are obtained. No fracture or dislocation is seen. Glenohumeral joint appears intact. The AC joint appears intact. There is some lateral acromial spurring with decreased distance between the acromion and humeral head, raising the possibility of rotator cuff pathology. Consider MRI for further evaluation if clinically warranted. IMPRESSION: No fracture or dislocation. Findings suggestive of rotator cuff pathology, consider MRI for further evaluation as clinically warranted. Dictated by: Dictated on workstation # [id number]
== END ==
LOC: RAD FS 08:09
PROVIDERS: ATTEND Nurse Practitioner
DX: M25.511 Pain in right shoulder (principal)
CPT/HCPCS: 73030

== ENCOUNTER 2021-07-04 13:05 | Emergency (ER) | payer BC ==
[~2021-07-04] VITALS: Ht 167.7 cm; Wt 85.3 kg
[~2021-07-04 13:05] MED LIST changes: +DICL100G13 TOP; -DICL100G31 TOP; +ESCI20TA39 PO; -ESCI20TA45 PO; -LISI1TAB29 PO; +LISI1TAB44 PO; +POTA-164 PO; -POTA10TA14 PO
[2021-07-04 13:10] VITALS: BP 140/91
[2021-07-04] MEDS ORDERED: fentaNYL INJ 100 MCG/2 ML AMP IVP ONE ×2 (13:15→15:15)
[2021-07-04] MEDS ORDERED: LACTATED RINGERS 1,000 ML IV SCH (13:15)
[2021-07-04] MEDS ORDERED: ONDANSETRON 4 MG/2 ML (SDV) Z0FRAN IVP ONE (13:15)
--- NOTE | 2021-07-04 13:20 | ED Abdominal Pain ---
General Stated Complaint: ABD PAIN,BACK PAIN Source of Information: Patient Exam Limitations: No Limitations History of Present Illness Date Seen by Provider: Jul 04, 2021 Time Seen by Provider: 13:17 Initial Comments To ER by private vehicle with reports of periumbilical abdominal pain. This began intermittently about 2 weeks ago and has gotten more consistent and intense since then. He ate a piece of toast this morning and had worsening of his pain and nausea. Bowel movements have been low volume but normal in consistency and frequency. History of diverticulitis but states this feels a little different. No fevers or chills. Is on methotrexate, ibuprofen as needed, Xeljanz for rheumatoid arthritis and also has hypertension. Timing/Duration: Getting Worse Severity/Quality: Moderate Radiation: No Radiation Activities at Onset: None Associated Symptoms: Nausea/Vomiting Allergies and Home Medications Allergies Coded Allergies: Penicillins (Verified Allergy, Unknown, 01/28/19) codeine (Verified Allergy, Unknown, 01/28/19) Patient Home Medication List Home Medication List Reviewed: Yes Ascorbate Calcium (Vitamin C) 500 Mg Tablet, 500 MG PO DAILY, (Reported) Entered as Reported by: DINAA BECKHAM on 07/20/19 151 Cyanocobalamin (Vitamin B-12) (Vitamin B-12) 1,000 Mcg Tablet, 1,000 MCG PO DAILY, (Reported) Entered as Reported by: DIANA BECKHAM on 07/20/19 151 Diclofenac Sodium (Diclofenac Sodium) 100 Gm Gel..gram., 4 GM TOP QID PRN for ARTHRITIS PAIN, (Reported) Entered as Reported by: CLAU GODFREY on 07/20/19 0845 Escitalopram Oxalate (Escitalopram Oxalate) 20 Mg Tablet, 20 MG PO DAILY, (Reported) Entered as Reported by: CLAU GODFREY on 07/20/19 0845 Ferrous Sulfate (Iron) 325 Mg Tablet, 325 MG PO DAILY, (Reported) Entered as Reported by: DIANA BECKHAM on 07/20/19 151 Ibuprofen (Ibuprofen) 800 Mg Tablet, 800 MG PO TID PRN for PAIN-MILD (1-4), (Reported) Entered as Reported by: CLAU GODFREY on 07/20/19 0845 Lisinopril/Hydrochlorothiazide (Lisinopril-Hctz 10-12.5 mg Tab) 1 Each Tablet, 0.5 TAB PO DAILY PRN for BP>120, (Reported) Entered as Reported by: CLAU GODFREY on 07/20/19 0845 Methotrexate Sodium (Methotrexate) 2.5 Mg Tablet, 20 MG PO WEEK PRN for WHEN OUT OF XELJANZ, (Reported) Entered as Reported by: CLAU GODFREY on 07/20/19 0845 Potassium Chloride (Klor-Con M10) 10 Meq Tab.er.prt, 10 MEQ PO TID, (Reported) Entered as Reported by: CLAU GODFREY on 07/20/19 0845 Tofacitinib Citrate (Xeljanz) 5 Mg Tablet, 5 MG PO BID, (Reported) Entered as Reported by: CLAU GODFREY on 07/20/19 0845 Review of Systems Review of Systems Constitutional: see HPI; No chills, No fever EENTM: No Symptoms Reported Respiratory: No Symptoms Reported Cardiovascular: No Symptoms Reported Gastrointestinal: See HPI, Abdominal Pain, Nausea Genitourinary: See HPI Musculoskeletal: no symptoms reported Skin: no symptoms reported Psychiatric/Neurological: No Symptoms Reported Endocrine: No Symptoms Reported Past Ahymnxz-Fopcqm-Xmhevg Hx Immunizations Up To Date Tetanus Booster (TDap): Unknown Seasonal Allergies Seasonal Allergies: No Past Medical History Surgeries: Yes (bilat CTR, bilat hand sx) Gallbladder, Orthopedic Respiratory: No Cardiac: Yes Hypertension Neurological: No Genitourinary: No Gastrointestinal: Yes Diverticulosis Musculoskeletal: Yes Rheumatoid Arthritis Endocrine: No HEENT: No Cancer: No Psychosocial: Yes (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 oz. [id number]; 29.40 BMI Method:Stated General Appearance: WD/WN, no apparent distress HEENT: PERRL/EOMI, normal ENT inspection Neck: non-tender, full range of motion Respiratory: lungs clear, no respiratory distress, no accessory muscle use Cardiovascular: no murmur, tachycardia (102) Gastrointestinal: normal bowel sounds, soft, tenderness Extremities: non-tender, other (Ulnar deviation of the second through fifth fingers at the MCP joint bilaterally consistent with his known history of rheumatoid arthritis.) Neurologic/Psychiatric: alert, normal mood/affect, oriented x 3 Skin: normal color, warm/dry Progress/Results/Core Measures Results/Orders Lab Results Laboratory Tests Test 07/04/21 13:15 07/04/21 14:25 Range/Units White Blood Count 5.2 4.3-11.0 10^3/uL Red Blood Count 4.72 4.30-5.52 10^6/uL Hemoglobin 13.0 L 13.3-17.7 g/dL Hematocrit 39 L 40-54 % Mean Corpuscular Volume 84 80-99 fL Mean Corpuscular Hemoglobin 28 25-34 pg Mean Corpuscular Hemoglobin Concent 33 32-36 g/dL Red Cell Distribution Width 14.9 H 10.0-14.5 % Platelet Count 295 130-400 10^3/uL Mean Platelet Volume 9.8 9.0-12.2 fL Immature Granulocyte % (Auto) 1 % Neutrophils (%) (Auto) 72 42-75 % Lymphocytes (%) (Auto) 17 12-44 % Monocytes (%) (Auto) 9 0-12 % Eosinophils (%) (Auto) 1 0-10 % Basophils (%) (Auto) 0 0-10 % Neutrophils # (Auto) 3.7 1.8-7.8 10^3/uL Lymphocytes # (Auto) 0.9 L 1.0-4.0 10^3/uL Monocytes # (Auto) 0.5 0.0-1.0 10^3/uL Eosinophils # (Auto) 0.1 0.0-0.3 10^3/uL Basophils # (Auto) 0.0 0.0-0.1 10^3/uL Immature Granulocyte # (Auto) 0.0 0.0-0.1 10^3/uL Sodium Level 140 135-145 MMOL/L Potassium Level 3.9 3.6-5.0 MMOL/L Chloride Level 106 98-107 MMOL/L Carbon Dioxide Level 22 21-32 MMOL/L Anion Gap 12 5-14 MMOL/L Blood Urea Nitrogen 8 7-18 MG/DL Creatinine 0.71 0.60-1.30 MG/DL Estimat Glomerular Filtration Rate 114 BUN/Creatinine Ratio 11 Glucose Level 126 H 70-105 MG/DL Calcium Level 9.6 8.5-10.1 MG/DL Corrected Calcium 9.6 8.5-10.1 MG/DL Total Bilirubin 0.5 0.1-1.0 MG/DL Aspartate Amino Transf (AST/SGOT) 26 5-34 U/L Alanine Aminotransferase (ALT/SGPT) 22 0-55 U/L Alkaline Phosphatase 84 40-136 U/L Total Protein 7.0 6.4-8.2 GM/DL Albumin 4.0 3.2-4.5 GM/DL Lipase 623 H 8-78 U/L Urine Color YELLOW Urine Clarity CLEAR Urine pH 6.0 5-9 Urine Specific Rienzi <=1.005 1.016-1.022 Urine Protein NEGATIVE NEGATIVE Urine Glucose (UA) NEGATIVE NEGATIVE Urine Ketones NEGATIVE NEGATIVE Urine Nitrite NEGATIVE NEGATIVE Urine Bilirubin NEGATIVE NEGATIVE Urine Urobilinogen 0.2 < = 1.0 MG/DL Urine Leukocyte Esterase NEGATIVE NEGATIVE Urine RBC (Auto) TRACE-I H NEGATIVE Urine RBC 0-2 /HPF Urine WBC RARE /HPF Urine Squamous Epithelial Cells 2-5 /HPF Urine Crystals NONE /LPF Urine Bacteria NEGATIVE /HPF Urine Casts NONE /LPF Urine Mucus NEGATIVE /LPF Urine Culture Indicated NO My Orders Orders - MOHAN YBARRA APRN Cbc With Automated Diff (07/04/21 13:15) Comprehensive Metabolic Panel (07/04/21 13:15) Lipase (07/04/21 13:15) Ua Culture If Indicated (07/04/21 13:15) Ed Iv/Invasive Line Start (07/04/21 13:15) Ct Abdomen/Pelvis W (07/04/21 13:15) Lactated Ringers (Lr 1000 Ml Iv Solution (07/04/21 13:15) Fentanyl Inj (Sublimaze Injection) (07/04/21 13:15) Ondansetron Injection (Zofran Injectio (07/04/21 13:15) Iohexol Injection (Omnipaque 350 Mg/Ml 1 (07/04/21 14:15) Received Contrast (Hold Metformin- Contr (07/04/21 14:15) Sodium Chloride Flush (Catheter Flush Sy (07/04/21 14:15) Ns (Ivpb) (Sodium Chloride 0.9% Ivpb Bag (07/04/21 14:15) Fentanyl Inj (Sublimaze Injection) (07/04/21 15:15) Oxycodone/Apap 5/325mg Tablet (Percocet (07/04/21 15:15) Medications Given in ED Current Medications Medications Dose Ordered Sig/Jhoan Route Start Time Stop Time Status Last Admin Dose Admin Fentanyl Citrate 50 mcg ONCE ONCE IVP 07/04/21 13:15 07/04/21 13:17 DC 07/04/21 13:26 50 MCG Iohexol 100 ml ONCE ONCE IV 07/04/21 14:15 07/04/21 14:16 DC 07/04/21 14:19 100 ML Ondansetron HCl 4 mg ONCE ONCE IVP 07/04/21 13:15 07/04/21 13:17 DC 07/04/21 13:26 4 MG Sodium Chloride 10 ml NEEDED PRN IV 07/04/21 14:15 07/04/21 14:19 10 ML Sodium Chloride 100 ml ONCE ONCE IV 07/04/21 14:15 07/04/21 14:16 DC 07/04/21 14:19 80 ML Vital Signs/I&O 07/04/21 13:10 Temp 36.7 Pulse 103 Resp 20 B/P (MAP) 140/91 (107) Pulse Ox 100 O2 Delivery Room Air Departure Impression Primary Impression: Pancreatitis Disposition: 01 HOME, SELF-CARE Condition: Stable Departure-Patient Inst. Decision time for Depature: 15:13 Referrals: CORKY HOLLOWAY MD (PCP/Family) Primary Care Physician Patient Instructions: Pancreatitis Add. Discharge Instructions: 1. Clear liquids only for the next 48 hours. This would be Jell-O, Gatorade, chicken broth, water, Pedialyte. Follow-up with Dr. Holloway. Call tomorrow to make an appointment to be seen next week. Nausea and pain medication as directed. Return to ER for intolerable nausea and vomiting or intolerable pain. Scripts Oxycodone HCl/Acetaminophen (Percocet 5-325 mg Tablet) 1 Each Tablet 1 TAB PO Q4H for PAIN-MODERATE MDD 6 TABS for 7 Days, #20 TAB Prov: MOHAN YBARRA [employer] 07/04/21 Ondansetron (Ondansetron Odt) 8 Mg Tab.rapdis 8 MG PO Q6H PRN for NAUSEA/VOMITING, #14 TAB Prov: MOHAN YBARRA APRN 07/04/21 Copy Copies To 1: SELFCORKY MD, PETER J APRN Jul 04, 2021 13:20
[2021-07-04 13:31] LABS: BASOPHILS % (AUTO) 0 % (0-10); EOSINOPHILS # (AUTO) 0.1 10^3/uL (0.0-0.3); EOSINOPHILS % (AUTO) 1 % (0-10); HEMATOCRIT 39 % (40-54); LYMPHOCYTES # (AUTO) 0.9 10^3/uL (1.0-4.0); LYMPHOCYTES % (AUTO) 17 % (12-44); MEAN CORPUSCULAR HEMOGLOBIN 28 pg (25-34); MEAN CORPUSCULAR HGB CONC 33 g/dL (32-36); MEAN CORPUSCULAR VOLUME 84 fL (80-99); MEAN PLATELET VOLUME 9.8 fL (9.0-12.2); MONOCYTES # (AUTO) 0.5 10^3/uL (0.0-1.0); MONOCYTES % (AUTO) 9 % (0-12); NEUTROPHILS # (AUTO) 3.7 10^3/uL (1.8-7.8); NEUTROPHILS % (AUTO) 72 % (42-75); PLATELET COUNT 295 10^3/uL (130-400); WHITE BLOOD COUNT 5.2 10^3/uL (4.3-11.0)
[2021-07-04 13:45] LABS: POTASSIUM 3.9 MMOL/L (3.6-5.0)
[2021-07-04 13:46] LABS: CALCIUM 9.6 MG/DL (8.5-10.1)
[2021-07-04 13:49] LABS: BILIRUBIN,TOTAL 0.5 MG/DL (0.1-1.0)
[2021-07-04 13:51] LABS: CREATININE SERUM 0.71 MG/DL (0.60-1.30)
[2021-07-04] MEDS ORDERED: IOHEXOL 350 MG/ML 100 ML (OMNIPAQUE 350) VIAL IV ONE (14:15)
[2021-07-04] MEDS ORDERED: CATHETER FLUSH 10 ML SYR IV PRN (14:15)
[2021-07-04] MEDS ORDERED: NS 100 ML (IVPB) BAG IV ONE (14:15)
[2021-07-04] MEDS ORDERED: HOLD METFORMIN - RECEIVED CONTRAST 20 ML VIAL IV SCH (14:15)
[2021-07-04 14:34] LABS: BILIRUBIN,URINE NEGATIVE (NEGATIVE); CLARITY,URINE CLEAR; COLOR,URINE YELLOW; GLUCOSE, URINE (UA) NEGATIVE (NEGATIVE); KETONES,URINE NEGATIVE (NEGATIVE); LEUKOCYTE ESTERASE ,URINE NEGATIVE (NEGATIVE); NITRITE,URINE NEGATIVE (NEGATIVE); PROTEIN,URINE NEGATIVE (NEGATIVE)
--- NOTE | 2021-07-04 14:38 | Diagnostic Imaging Report ---
PROCEDURE: CT abdomen and pelvis with contrast. TECHNIQUE: Multiple contiguous axial images were obtained through the abdomen and pelvis after administration of intravenous contrast. Auto Exposure Controls were utilized during the CT exam to meet ALARA standards for radiation dose reduction. All CT scans use one or more of the following dose optimizing techniques: automated exposure control, MA and/or KvP adjustment based on patient size and exam type or iterative reconstruction. INDICATION: Abdominal pain, retro-umbilical COMPARISON: 07/20/2019 FINDINGS: Previous features of acute sigmoid diverticulitis have resolved. There is no findings of active small or large bowel inflammation. There were no findings of appendicitis. A right adnexal cystic lesion of 4.4 x 3.1 cm, unchanged from the previous exam. The uterus and left adnexa unremarkable. The urinary bladder appeared normal at follow-up. There is no pneumatosis. There is no free air. There is no small or large bowel obstruction. The abdominal wall, in particular, the retro-umbilical portion appeared normal. No hernia. Gallbladder absent. The liver and bile ducts appeared unremarkable. Right adrenal nodule unchanged from prior at the isthmus. The left adrenal negative. The spleen and pancreas normal with incidental splenule in the left upper quadrant. There a small hiatal hernia. Kidneys unobstructed and nonacute with probable calculus in a left lower pole, nonobstructing and stable. No opaque ureteral stone. No fluid collection or adenopathy. No acute bony pathology. The lung bases nonacute. IMPRESSION: Resolution of previous diverticulitis. Stable chronic right adnexal cyst. No acute abdominal wall pathology. No inflammatory process or adverse development. Stable indeterminate right adrenal nodule. Likely nonobstructing left renal calculus stable, no acute finding. Dictated by: Dictated on workstation # [id number]
[2021-07-04 14:41] LABS: BACTERIA,URINE NEGATIVE /HPF; RBC,URINE 0-2 /HPF; WBC,URINE RARE /HPF
[2021-07-04] MEDS ORDERED: ONDA8TAB13 PO (15:15)
[2021-07-04] MEDS ORDERED: oxyCODONE/APAP 5/325MG (PERCOCET 5) TABLET PO ONE (15:15)
[2021-07-04] MEDS ORDERED: OXYC1TAB87 PO (15:15)
== END 2021-07-04 17:16 | disposition home or self-care (01) ==
LOC: EDUNIT# 13:05 → ER 13:06 → EDSEX 13:06 → ER 17:16
DX: K85.90 Acute pancreatitis without necrosis or infection, unspecified (principal); I10 Essential (primary) hypertension; F32.9 Major depressive disorder, single episode, unspecified; Z79.899 Other long term (current) drug therapy
CPT/HCPCS: 36415; 74177; 80053; 81000; 83690; 85025